=== PATIENT | male | born 1960 | race Caucasian/White ===

== ENCOUNTER → 2016-06-04 | Outpatient (CLI) | payer OTHER ==
[~2016-06-04] VITALS: Ht 188 cm; Wt 115.7 kg
[~2016-06-04] MED LIST: CURCPOW XX; ECOT81TA5 PO; GLUC500T53 PO; HYDR25TAB PO; LIDOCAINE 2% INJ 100 MG/5 ML SDV (FOR ANES.) As Ordered ONE; LISI10TA4 PO; NS 1,000 ML IV SCH; PROPOFOL 200 MG/20 ML VIAL As Ordered ONE
--- NOTE | 2016-06-04 09:27 | ROOR ---
Patient Name: Mike Wray Procedure Date: 06/04/2016 9:03 AM Date of : 1960 Age: 56 Room: [facility] Gender: Male Note Status: Finalized Procedure: Colonoscopy Indications: High risk colon cancer surveillance: Personal history of colonic polyps, Last colonoscopy: March 2011 Providers: Pio CANO MD Referring MD: Adam Smallwood MD Requesting Provider: Medicines: Monitored Anesthesia Care Complications: No immediate complications. Procedure: Pre-Anesthesia Assessment: - The heart rate, respiratory rate, oxygen saturations, blood pressure, adequacy of pulmonary ventilation, and response to care were monitored throughout the procedure. The Colonoscope was introduced through the anus and advanced to the cecum, identified by appendiceal orifice and ileocecal valve. The colonoscopy was performed without difficulty. The patient tolerated the procedure well. The quality of the bowel preparation was good. Findings: The perianal and digital rectal examinations were normal. (Exam: Complete, Prep: Good or Excellent.) Small Internal Hemorrhoids. The entire examined colon appeared normal on direct and retroflexion views. Impression: - Small Internal Hemorrhoids. - The entire colon is normal on direct and retroflexion views. - No specimens collected. Recommendation: - Repeat colonoscopy in 5 years for surveillance based on personal history of previous adenomatous polyps. Pio Cano MD Pio CANO MD 06/04/2016 9:27:01 AM This report has been signed electronically. Number of Addenda: 0 Note Initiated On: 06/04/2016 9:03 AM Estimated Blood Loss: Estimated blood loss: none.
[2016-06-04 09:45] VITALS: BP 124/80
== END ==
LOC: M OPP 07:26
PROVIDERS: ATTEND Internal Medicine Gastroenterology
DX: Z12.11 Encounter for screening for malignant neoplasm of colon (principal); Z86.010 Personal history of colon polyps; K64.8 Other hemorrhoids; I10 Essential (primary) hypertension; Z79.82 Long term (current) use of aspirin; Z79.899 Other long term (current) drug therapy

== ENCOUNTER → 2016-11-19 | Outpatient (REF) | payer OTHER ==
[~2016-11-19] MED LIST changes: -LIDOCAINE 2% INJ 100 MG/5 ML SDV (FOR ANES.) As Ordered ONE; -NS 1,000 ML IV SCH; -PROPOFOL 200 MG/20 ML VIAL As Ordered ONE
[2016-11-19 13:36] LABS: ALBUMIN 3.9 GM/DL (3.2-5.2); ALKALINE PHOSPHATASE 64 U/L (45-117); ALT/SGPT 29 U/L (12-78); ANION GAP 8 MEQ/L (8-16); AST/SGOT 20 U/L (15-37); BILIRUBIN,TOTAL 0.9 MG/DL (0.2-1.0); BLOOD UREA NITROGEN 20 MG/DL (7-18); CALCIUM LEVEL 8.6 MG/DL (8.5-10.1); CARBON DIOXIDE LEVEL 28 MEQ/L (21-32); CHLORIDE LEVEL 105 MEQ/L (98-107); CHOLESTEROL LEVEL 162 MG/DL (<200); GLOMERULAR FILTRATION RATE > 60.0 (>56); GLUCOSE, FASTING 83 MG/DL (70-105); POTASSIUM SERUM 3.5 MEQ/L (3.5-5.1); SODIUM LEVEL 141 MEQ/L (136-145); TOTAL PROTEIN 6.9 GM/DL (6.4-8.2); TRIGLYCERIDES LEVEL 52 MG/DL (<150)
== END ==
LOC: M SFHCPLAZ 09:09
PROVIDERS: ATTEND Family Medicine
DX: E78.00 Pure hypercholesterolemia, unspecified (principal); R73.09 Other abnormal glucose; R97.20 Elevated prostate specific antigen [PSA]

== ENCOUNTER → 2017-01-25 | Outpatient (CLI) | payer OTHER ==
--- NOTE | 2017-01-25 09:58 | REP ---
Clinical: Pain with recent trauma. Technique: AP and lateral views of the left humerus. Findings: Moderate arthritic changes at the shoulder and elbow with findings to suggest possible old trauma involving the distal humeral metaphysis. No acute humeral fracture identified. Lateral view demonstrates soft tissue swelling at the level of the elbow and correlation is recommended. Impression: Degenerative and possible old traumatic changes. No obvious acute fracture dislocation. Posterior elbow swelling. Signed by Easton Carrizales MD 01/25/2017 09:50 A
--- NOTE | 2017-01-25 10:00 | REP ---
Clinical: Pain with recent trauma. Technique: AP, lateral, bilateral oblique views of the left elbow. Findings: Age-related degenerative changes are appreciated along with periosteal reaction along the radial aspect of the distal humeral metaphysis suggesting old injury. Small corticated/calcified densities in the posterior soft tissues along with cortical irregularities suggest calcific tendinopathy along with mild age-related degenerative changes. No obvious acute fracture or dislocation identified. Lateral view demonstrates normal position to the anterior and posterior fat pad without effusion. Impression: Moderate degenerative changes. No obvious acute fracture dislocation. Signed by Easton Carrizales MD 01/25/2017 09:52 A
== END ==
LOC: M LRY 09:27
PROVIDERS: ATTEND Nurse Practitioner Family
DX: M25.522 Pain in left elbow (principal)

== ENCOUNTER → 2017-11-04 | Outpatient (REF) | payer OTHER ==
[2017-11-04 21:26] LABS: ALBUMIN 4.1 GM/DL (3.2-5.2); ALKALINE PHOSPHATASE 71 U/L (45-117); ALT/SGPT 35 U/L (12-78); ANION GAP 7 MEQ/L (8-16); AST/SGOT 25 U/L (7-37); BILIRUBIN,TOTAL 0.7 MG/DL (0.2-1.0); BLOOD UREA NITROGEN 21 MG/DL (7-18); CARBON DIOXIDE LEVEL 31 MEQ/L (21-32); CHLORIDE LEVEL 101 MEQ/L (98-107); CREATININE FOR GFR 0.91 MG/DL (0.70-1.30); GLOMERULAR FILTRATION RATE > 60.0 (>56); SODIUM LEVEL 139 MEQ/L (136-145); TOTAL PROTEIN 7.4 GM/DL (6.4-8.2); TRIGLYCERIDES LEVEL 59 MG/DL (<150)
[2017-11-04 21:43] LABS: CHOLESTEROL LEVEL 183 MG/DL (<200); CHOLESTEROL RISK RATIO 4.066 (<5); HDL CHOLESTEROL 45 MG/DL (>40); LDL CHOLESTEROL 126.2 MG/DL (<100); NON-HDL-C 138 MG/DL
[2017-11-04 21:44] LABS: ALBUMIN/GLOBULIN RATIO 1.24 (1.00-1.93); PROSTATIC SPECIFIC AG MONITOR 1.98 NG/ML (< 4.0)
[2017-11-05 00:05] LABS: GLUCOSE, FASTING 89 MG/DL (70-100)
== END ==
LOC: M SFHCPLAZ 08:42
DX: E78.00 Pure hypercholesterolemia, unspecified (principal); R97.20 Elevated prostate specific antigen [PSA]

== ENCOUNTER → 2019-01-28 | Outpatient (CLI) | payer OTHER ==
[2019-01-28 11:01] LABS: HEMATOCRIT 40.1 % (42.0-52.0); HEMOGLOBIN 13.8 g/dl (13.5-17.5); MEAN CORPUSCULAR HEMOGLOBIN 31.5 pg (27.0-33.0); MEAN CORPUSCULAR HGB CONC 34.4 g/dl (32.0-36.5); MEAN CORPUSCULAR VOLUME 91.6 fl (80.0-96.0); PLATELET COUNT, AUTOMATED 205 10^3/uL (150-450); RED BLOOD COUNT 4.38 10^6/uL (4.30-6.10); WHITE BLOOD COUNT 5.5 10^3/uL (4.0-10.0)
[2019-01-28 11:27] LABS: ALT/SGPT 36 U/L (12-78); BILIRUBIN,TOTAL 0.6 MG/DL (0.2-1.0); BLOOD UREA NITROGEN 22 MG/DL (7-18); CALCIUM LEVEL 8.8 MG/DL (8.5-10.1); CARBON DIOXIDE LEVEL 30 MEQ/L (21-32); CHLORIDE LEVEL 106 MEQ/L (98-107); CHOLESTEROL LEVEL 200 MG/DL (<200); CREATININE FOR GFR 0.94 MG/DL (0.70-1.30); GLOMERULAR FILTRATION RATE > 60.0 (>56); GLUCOSE, FASTING 87 MG/DL (70-100); HDL CHOLESTEROL 50 MG/DL (>40); LDL CHOLESTEROL 137 MG/DL (<100); NON-HDL-C 150 MG/DL; POTASSIUM SERUM 3.8 MEQ/L (3.5-5.1); PROSTATIC SPECIFIC AG MONITOR 1.87 NG/ML (< 4.00); SODIUM LEVEL 141 MEQ/L (136-145); TOTAL PROTEIN 7.4 GM/DL (6.4-8.2); TRIGLYCERIDES LEVEL 64 MG/DL (<150)
[2019-01-28 11:28] LABS: HEMOGLOBIN A1c 5.8 %
== END ==
LOC: M LAB 09:54
PROVIDERS: ATTEND Family Medicine
DX: I10 Essential (primary) hypertension (principal)

== ENCOUNTER → 2019-03-07 | Outpatient (CLI) | payer OTHER ==
--- NOTE | 2019-03-08 06:59 | REP ---
MRI LEFT SHOULDER: TECHNIQUE: Axial T2 fat sat, gradient echo, sagittal oblique T2 fat sat, coronal oblique T1, T2 fat sat. There is complete tear of the supraspinatus tendon with retraction of the musculotendinous junction medially approximately 3 cm. There is probably a partial tear of the subscapularis as well as the infraspinatus tendons. There are moderate hypertrophic degenerative changes of the acromioclavicular joint with mild fluid in the joint and subchondral marrow edema on both sides of the joint. There is a os acromiale present with edema along the apophysis. Biceps tendon demonstrates mild ill-defined high signal with mild surrounding fluid possibly indicating mild tenosynovitis. There is no Hill-Sachs deformity. No abnormal signal is seen in the deltoid muscle. There is a tear at the base of the biceps labral complex extending into the superior labrum. There may be some mild fraying of the anterior and posterior labrum. No edema is seen in the proximal humerus. There is mild fluid scattered in the glenohumeral joint as well as in the subacromial subdeltoid bursae. IMPRESSION: Complete tear supraspinatus tendon with a retraction of the musculotendinous junction medially approximately 3 cm. I suspect partial tears of the subscapularis and infraspinatus tendons. Moderate hypertrophic degenerative changes of the acromioclavicular joint with an os acromiale. Suspect mild biceps tendosynovitis. There is a tear at the base of the biceps labral complex and adjacent superior labrum. There may be some mild fraying of the anterior and posterior labrum. Mild glenohumeral joint fluid and well as mild fluid in the subacromial subdeltoid bursae. Electronically Signed by Bryson Naidu MD 03/08/2019 09:38 A
== END ==
LOC: M RAD 10:35
PROVIDERS: ATTEND Orthopaedic Surgery Sports Medicine
DX: M75.42 Impingement syndrome of left shoulder (principal)

== ENCOUNTER → 2019-04-22 | Outpatient (CLI) | payer OTHER ==
--- NOTE | 2019-04-22 11:09 | REP ---
LEFT HIP, TWO VIEWS: Two views of the left hip are performed. There is no acute fracture or dislocation. There is mild joint space narrowing, subchondral sclerosis and spurring. There is moderate sclerosis along the pubic symphysis bilaterally. There is mild sclerosis at the sacroiliac joints. IMPRESSION: Degenerative changes as above. Electronically Signed by Bryson Naidu MD 04/22/2019 03:13 P
--- NOTE | 2019-04-22 11:11 | REP ---
LEFT KNEE SERIES, FIVE VIEWS: Five views of the left knee performed. There is no acute fracture or dislocation. There is moderate narrowing, subchondral sclerosis and spurring of the lateral patellofemoral joint. There is an adjacent 1.2 cm ossific body at the lateral margin of that joint. There is mild superior and inferior patellar spurring. There is moderate spurring of the anterior femoral condyles. There is mild to moderate narrowing of the medial joint space with mild spurring at the lateral femoral condyle and tibial plateau. I do not see significant joint effusion. IMPRESSION: Moderate degenerative changes. Electronically Signed by Bryson Naidu MD 04/22/2019 03:13 P
== END ==
LOC: M ADAMS 09:02
PROVIDERS: ATTEND Family Medicine
DX: M25.552 Pain in left hip (principal); M25.562 Pain in left knee

== ENCOUNTER → 2019-04-25 | Outpatient (CLI) | payer OTHER ==
--- NOTE | 2019-04-26 08:44 | REP ---
MRI RIGHT SHOULDER: TECHNIQUE: Axial T2 fat sat, gradient echo, sagittal oblique T2 fat sat, coronal oblique T1, T2 fat sat. There is a complete full-thickness tear of the supraspinatus tendon with a gap in the tendon approximately 2.6 cm in maximum length. There appears to be a partial tear of the subscapularis tendon. There is an os acromiale present. There are mild to moderate hypertrophic degenerative changes of the acromioclavicular joint. Acromion is type 2. Biceps tendon is within the bicipital groove with mild surrounding fluid. There is no Hill-Sachs deformity. No abnormal signal seen in the deltoid muscle. There is no definite labral tear. No paralabral cyst is seen. Mild to moderate diffuse fluid is seen throughout the joint extending into the subacromial/subdeltoid bursae. IMPRESSION: Complete full-thickness tear supraspinatus tendon with a gap in the tendon 2.6 cm in maximum length. Partial tear subscapularis tendon. Os acromiale. Mild to moderate hypertrophic degenerative changes of the acromioclavicular joint. No definite labral tear. The labrum would be better evaluated with an MR arthrogram. Mild to moderate chondromalacia at the glenohumeral joint. Mild subchondral marrow edema and cystic change in the inferior bony glenoid as well as in the superolateral humeral head. Mild to moderate diffuse fluid throughout the joint extending into the subacromial/subdeltoid bursae. Electronically Signed by Bryosn Naidu MD 04/26/2019 06:22 P
== END ==
LOC: M RAD 10:44
PROVIDERS: ATTEND Orthopaedic Surgery Sports Medicine
DX: M25.511 Pain in right shoulder (principal)

== ENCOUNTER → 2020-01-09 | Outpatient (CLI) | payer OTHER | LOC: M LABSMTC 08:39 | PROVIDERS: ATTEND Orthopaedic Surgery Sports Medicine | DX: Z01.812 Encounter for preprocedural laboratory examination (principal); Z20.828 Contact with and (suspected) exposure to other viral communicable diseases ==

== ENCOUNTER → 2020-01-28 | Outpatient (REF) | payer OTHER ==
[2020-01-28 17:08] LABS: ALT/SGPT 58 U/L (12-78); BILIRUBIN,TOTAL 0.5 MG/DL (0.2-1.0); BLOOD UREA NITROGEN 21 MG/DL (7-18); CALCIUM LEVEL 9.7 MG/DL (8.5-10.1); CARBON DIOXIDE LEVEL 31 MEQ/L (21-32); CHLORIDE LEVEL 104 MEQ/L (98-107); CHOLESTEROL LEVEL 217 MG/DL (<200); CHOLESTEROL RISK RATIO 5.166 (<5); CREATININE FOR GFR 0.99 MG/DL (0.70-1.30); GLOMERULAR FILTRATION RATE > 60.0 (>56); GLUCOSE, FASTING 111 MG/DL (70-100); HDL CHOLESTEROL 42 MG/DL (>40); LDL CHOLESTEROL 144 MG/DL (<100); NON-HDL-C 175 MG/DL; POTASSIUM SERUM 3.9 MEQ/L (3.5-5.1); PROSTATIC SPECIFIC AG MONITOR 2.25 NG/ML (< 4.00); SODIUM LEVEL 139 MEQ/L (136-145); TOTAL PROTEIN 7.1 GM/DL (6.4-8.2); TRIGLYCERIDES LEVEL 157 MG/DL (<150)
== END ==
LOC: M PLALAB 09:08
PROVIDERS: ATTEND Family Medicine
DX: I10 Essential (primary) hypertension (principal); E78.5 Hyperlipidemia, unspecified; R97.20 Elevated prostate specific antigen [PSA]

== ENCOUNTER → 2020-03-25 | Outpatient (CLI) | payer OTHER ==
[~2020-03-25] MED LIST changes: +KP F1200 PO
== END ==
LOC: M LABSMTC 10:27
PROVIDERS: ATTEND Anesthesiology
DX: Z01.812 Encounter for preprocedural laboratory examination (principal); Z20.822 Contact with and (suspected) exposure to COVID-19

== ENCOUNTER 2020-03-30 07:53 | Day surgery (SDC) | payer OTHER ==
[~2020-03-30] VITALS: Ht 185.4 cm; Wt 130.4 kg
[~2020-03-30 07:53] MED LIST changes: +ceFAZolin SOD 2 GM in IV 1 EA IV ONE
--- OUTSIDE RECORDS SUMMARY | 2020-03-30 07:59 | CCD ---
Author Author [facility] Organization [facility] Address Unknown Phone Unavailable Care Team Providers Care Food Safety Technician Name Role Phone Adam Smallwood Unavailable PROBLEMS Type Condition ICD9-CM Code [id number] Code Onset Dates Condition S tatus SNOMED Code Notes Problem Other psoriasis L40.8 Active 0877217 Problem Psoriasis L40.9 Active 2140625 stable plaque disease affecting < 10% BSA. He isn't interested in any other therapy at this time. 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 Active 0626612616098543 Problem History of adenomatous polyp of colon Z86.010 Ac tive 925306283 Problem Other chronic pain G89.29 Active 37863294 Problem Essential (primary) hypertension I10 Active 49567354 Problem Prediabetes R73.03 Active 532674065 Problem Prediabetes R73.09 Active 269001922 Problem Dyslipidemia E78.5 Active 349817000 Problem Primary osteoarthritis, left shoulder M19.012 Active [id number] ALLERGIES No Known Allergies ENCOUNTERS from 1960 to 2020-02-10 Encounter Location Date Provider Diagnosis [facility] [address] [place] [address] 16 Jan, 2020 Jake Smallwood Essential (primary) hypertension I10 IMMUNIZATIONS Vaccine Route Administration Date Status Influenza (18 yrs & older) Flublok IM Intramuscular Feb 04, 2019 Administered Zoster 50mcg/0.5mL (Shingrix) Unknown May 15, 2017 Ad ministered Influenza (6mo & up) Fluzone IM Intramuscular Nov 23, 2015 Ad ministered Influenza (6mo & up) Fluzone IM Intramuscular Nov 10, 2013 Ad ministered SOCIAL HISTORY Tobacco Use: Social History Observation Description Date Details (start date - stop date) Never Smoker Sex Assigned At : Social History Observation Description Sex Assigned At Unknown BMI Care Goal Follow-Up Question Answer Notes Above Normal BMI Follow-Up Giving encouragement to exercise Tobacco Use: Question Answer Notes Are you a: never smoker REASON FOR REFERRAL No Information VITAL SIGNS No information MEDICATIONS Medication SIG (Take, Route, Frequency, Duration) Notes Start Da te End Date Status Glucosamine 500 mg 1 tablet Orally daily for 30 day(s) Active Protopic 0.1 % 1 application to affected ar ea Externally twice a day to inguinal folds and face for 30 days Dec, Activ e Lac-Hydrin 12 % 1 application to affected ar ea Externally Twice a day to dry skin for 1 month Dec, Active May Have - cbd OIL Not-Taking Curcumin 95 500 MG Orally Active 10% LCD in Aquaphor _ as directed topically twice daily to psoriasis plaques on body for 1 month Feb, Unknown Lisinopril 10 MG TAKE ONE TABLET BY MOUTH ONCE A DAY for 90 Active Hydrochlorothiazide 25 25 mg 1 tab(s) orally daily for 90 days Apr, Active Betamethasone Dipropionate 0.05 % 1 application to aff ected area Externally Once a day for 30 Days Active Taclonex 0.005-0.064 % APPLY 1 DROP TO AFFECTED AREA ON SCAL P ONCE A DAY for 30 Active Cordran 4 MCG/SQCM 1 application to affected ar ea Externally Once a day to lesions on legs for 1 month Apr, Unkn own Ibuprofen 800 MG 1 tablet with food or milk a s needed Orally Three times a day for 7 days Jan, Active Temovate 0.05 % 1 application to arms and le gs area Externally twice a day for a week then stop for a week, as needed Unknown Calcipotriene-Betameth Diprop 0.005-0.064 % 1 applicat ion to affected area Externally Once a day to areas on arms, legs, back for 30 day(s) Dec, Active Hydrochlorothiazide 25 MG TAKE ONE TABLET BY MOUTH DAILY for 90 Active Aspirin 81 MG 1 tab(s) Orally daily Active CPAP Machine ` 14cm water pressure ` every night/Pulmonary Active PROCEDURES No Information RESULTS No Results REASON FOR VISIT hydrochlorothiazide 25mg MEDICAL (GENERAL) HISTORY Type Description Date Medical History HTN Medical History migraines Medical History Eczema Medical History Hypercholesterolemia---10 yr ASCVD risk 12.5% (02/13)--declines statin tx Medical History OBED on CPAP Medical History Psoriasis Medical History Neck Pain Medical History Obesity Medical History Broken left arm (14 years old) Medical History chronic back pain Medical History adenomatous colon polyp 04/08 Medical History PreDM 11/10 Medical History HZ right hand/arm 04/13 Medical History left shoulder: multiple rota tor cuff tears, labral tear MRI 03/16 [facility] Surgical History lumpectomy removed from right thumb as c hild Surgical History colonoscopy--adenomatous polyp 04/08 Goals Section No Information Health Concerns No Information MEDICAL EQUIPMENT No Information MENTAL STATUS No Information FUNCTIONAL STATUS No Information ASSESSMENTS Encounter Date Diagnosis Assessment Notes Treatment Notes Treatm ent Clinical Notes Jan, Essential (primary) hypertension (ICD-10 - I10) PLAN OF TREATMENT Medication Medication Name Sig Start Date Stop Date Hydrochlorothiazide 25 25 mg 1 tab(s) orally daily for 90 days 0 8 Apr, 2012 Hydrochlorothiazide 25 MG TAKE ONE TABLET BY MOUTH DAILY for 90 Insurance Providers Payer Name Payer Address Payer Phone Insured Name Patient Relati onship to Insured Coverage Start Date Coverage End Date [facility] [id number] [facility] [id number] [phone] SACHIN ALVES [id number]
--- OUTSIDE RECORDS SUMMARY | 2020-03-30 07:59 | CCD | Continuity of Care Document ---
Author Author Mike KAISER MD Organization Unknown Address [address] [place] [address], [address] [place] [address] Phone [phone] Care Team Providers Care Costuming Supervisor Name Role Phone Adam Smallwood M.D. AUTM [phone] [facility] Radiology - Imaging AUTM Problems Active Problems Provider Date Essential hypertension Fiona Moreno, A.N.P. Onset: 11/2012 Obstructive sleep apnea syndrome Fiona Moreno, A.N.P. Onset: 02/27/2010 Social History Type Date Description Comments Sex Unknown ETOH Use Rarely consumes alcohol Tobacco Use Start: Unknown Patient has never smoked Smoking Status Reviewed: 03/31/19 Patient has never smoked Allergies, Adverse Reactions, Alerts Description No Known Drug Allergies Medications Active Medications SIG Qnty Indications Ordering Provide r Date Oxycodone-Acetaminophen 5-325mg Ta blets 1- 2 tabs by mouth every 4 to 6 hours as needed / post surgical pain 20tabs Lakhwinder Kaiser MD 01/14/2020 Lisinopril 10mg Tablets 1 tab by mouth every day Unknown Hydrochlorothiazide 25mg Tablets 1 tab by mouth every day Unknown Aspir-[address] 1 tab by mouth every day Unknown CPAP 14CM [facility] Unknown Glucosamine-Chondroitin by mouth every day Unkn own Turmeric Curcumin Capsules by mouth twice a day Unknown Tacrolimus 0.1% Ointment Unknown Calcipotriene/Betamethasone Dipropionate 0.005-0.064% Ointment Unknown 0 History Medications Percocet 5-325mg Tablets 1 by mouth every 4 hours For prn Post Op Pain. (Please DO Not Fill Until 01/14/2020) 12tabs Lakhwinder Kaiser MD 12/24/2019 - 01/14/2020 Immunizations CPT Code Status Date Vaccine Lot # [id number] Given 11/23/2015 Influenza Virus Split 3 Yrs And Above For Intramuscular Use 61288 Given 12/28/2014 Influenza Virus Split 3 Yrs And Above For Intramuscular Use 38474 Given 03/03/2013 Influenza Virus Split 3 Yrs And Above For Intramuscular Use Q2036 Given Unknown Influenza Vaccine 3 Years Of Age Or Older (Flulaval) Vital Signs Date Vital Result Comment 12/21/2019 9:02am Body Temperature 97.7 F 03/31/2019 10:33am BP Systolic 124 mmHg BP Diastolic 78 mmHg Heart Rate 62 /min O2 % BldC Oximetry 95 % Height 74 inches 6'2" Weight 263.00 lb BMI (Body Mass Index) 33.8 kg/m2 [place] Body Weight 190 lb Weight 119.297 kg BSA (Body Surface Area) 2.44 m2 Results Test Acquired Date Facility Test Result H/L Range Note Laboratory test finding 01/09/2020 [facility] Lab [address] [place] [address] [phone] Coronavirus 2019 Nasopharygeal This nucleic aci <SEE N OTE> 1 1 This nucleic acid amplificat ion test was developed and its performance characteristics determined by [employer] [facility]. Nucleic acid amplification tests include PCR and TMA. This test has not been FDA cleared or approved. This test has been authorized by FDA under an Emergency Use Authorization (EUA). This test is only authorized for the duration of time the declaration that circumstances exist justifying the authorization of the emergency use of in vitro diagnostic tests for detection of SARS-CoV-2 virus and/or diagnosis of COVID-19 infection under section 564(b)(1) of the Act, 21 U.S.C. 360bbb-3 (b) (1), unless the authorization is terminated or revoked sooner. When diagnostic testing is negative, the possibility of a false negative result should be considered in the context of a patient's recent exposures and the presence of clinical signs and symptoms consistent with COVID-19. An individual without symptoms of COVID-19 and who is not shedding SARS-CoV-2 virus would expect to have a negative (not detected) result in this assay. Performed at: [facility] [address] [facility], [place], [place] [id number] Sales Engagement Executive: Serina Lord PhD, Phone: [phone] Not Detected Procedures Date Code Description Status 11/09/201965437 Inject/Drain Arthrocentesis Diane r Joint/Bursa/Ganglion Cyst Completed Medical Devices Description No Information Available Encounters Type Date Location Provider Dx Diagnosis Office Visit 01/18/2020 8:40a [facility] Lakhwinder Kaiser MD S83.242A Oth tear of medial meniscus, current inj ury, left knee, init M17.12 Unilateral primary osteoarth ritis, left knee Z47.89 Encounter for other orthoped ic aftercare Office Visit 12/21/2019 9:10a [facility] Lakhwinder Kaiser MD M75.121 Complete rotatr-cuff tear/ruptr of r shoulder, not trauma M19.011 Primary osteoarthritis, righ t shoulder G56.03 Carpal tunnel syndrome, bila teral upper limbs M17.12 Unilateral primary osteoarth ritis, left knee Office Visit 11/09/2019 9:20a [facility] Lakhwinder Kaiser MD M75.121 Complete rotatr-cuff tear/ruptr of r shoulder, not trauma M19.011 Primary osteoarthritis, righ t shoulder G56.03 Carpal tunnel syndrome, bila teral upper limbs M17.12 Unilateral primary osteoarth ritis, left knee Assessments Date Code Description Provider 01/18/2020 S83.242A Other tear of medial meniscus, current injury, left knee, initial encounter Lakhwinder Kaiser MD 01/18/2020 M17.12 Unilateral primary osteoarthriti s, left knee Lakhwinder Kaiser MD 01/18/2020 Z47.89 Encounter for other orthopedic a ftercare Lakhwinder Kaiser MD 12/21/2019 M75.121 Complete rotator cuf f tear or rupture of right shoulder, not specified as traumatic Lakhwinder Kaiser MD 12/21/2019 M19.011 Primary osteoarthritis, right sh oulder Lakhwinder Kaiser MD 12/21/2019 G56.03 Carpal tunnel syndrome, bilatera l upper limbs Lakhwinder Kaiser MD 12/21/2019 M17.12 Unilateral primary osteoarthriti s, left knee Lakhwinder Kaiser MD 11/09/2019 M75.121 Complete rotator cuf f tear or rupture of right shoulder, not specified as traumatic Lakhwinder Kaiser MD 11/09/2019 M19.011 Primary osteoarthritis, right sh oulder Lakhwinder Kaiser MD 11/09/2019 G56.03 Carpal tunnel syndrome, bilatera l upper limbs Lakhwinder Kaiser MD 11/09/2019 M17.12 Unilateral primary osteoarthriti s, left knee Lakhwinder Kaiser MD Plan of Treatment Future Appointment(s):* 01/28/2020 9:10 am - Lakhwinder Kaiser MD at [facility] * 04/19/2020 10:15 am - Rocio Neves, N.P. at [facility] 01/18/2020 - Lakhwinder Kaiser MD* S83.242A Other tear of medial meniscus, current injury, left knee, initial encounter* Follow up:* keep scheduled appt with [facility] * M17.12 Unilateral primary osteoarthritis, left knee * Z47.89 Encounter for other orthopedic aftercare Functional Status Description No Information Available Mental Status Description No Information Available Referrals Refer to Dr Reason for Referral Status Appt Date Lakhwinder Kaiser MD SURGERY PER [place] AT [facility] N O AUTH REQUIRED FOR CTR([id number]) AND COVERED AT 100% TO SURGERY NT CALL REF #[id number] Created [address] [facility], [address] [place] [address] [phone]
--- OUTSIDE RECORDS SUMMARY | 2020-03-30 07:59 | CCD | Continuity of Care Document ---
Author Author Mike KAISER MD Organization Unknown Address [address] [place] [address] , [facility] [address] [place] [address] Phone [phone] Care Team Providers Care Training Program Manager Name Role Phone Adam Smallwood M.D. AUTM [phone] [facility] Radiology - Imaging AUTM Problems Active [...] CPT Code Status Date Vaccine Lot # 09853 Given 11/23/2015 Influenza Virus Split 3 Yrs And Above For Intramuscular Use 55369 Given 12/28/2014 Influenza Virus Split 3 Yrs And Above For Intramuscular Use 30735 Given 03/03/2013 Influenza Virus Split 3 Yrs And Above For Intramuscular Use Q2036 Given Unknown Influenza Vaccine 3 Years Of Age Or Older (Flulaval) Vital Signs Date Vital Result Comment 03/08/2020 9:49am Body Temperature 98.0 F Height 73 inches 6'1" Weight 288.00 lb BMI (Body Mass Index) 38.0 kg/m2 [place] Body Weight 184 lb Weight 130.637 kg BSA (Body Surface Area) 2.51 m2 12/21/2019 9:02am Body Temperature 97.7 F Results Test Acquired Date Facility Test Result H/L Range Note Laboratory test finding 01/09/2020 [facility] Main Lab [address] [place] [address] [phone] Coronavirus 2019 Nasopharygeal This nucleic aci <SEE N OTE> 1 1 This nucleic acid amplificat ion test was developed and its performance characteristics determined by [employer]. Nucleic acid amplification tests include PCR and [...] detected) result in this assay. Performed at: [email or web address] [address] [facility], [place], [place] [id number] [employer] Plate Making: Serina Lord PhD, Phone: [phone] Not Detected Procedures Date Code Description Status 01/14/2020 18963 Neuroplasty/Transposition, Media n Nerve AT Carpal Tunnel Completed 11/09/201987620 Inject/Drain Arthrocentesis Diane r Joint/Bursa/Ganglion Cyst Completed Medical Devices Description No Information Available Encounters Type Date Location Provider Dx Diagnosis Office Visit 03/08/2020 10:00a [facility] Lakhwinder Kaiser MD G56.01 Carpal tunnel syndrome, right upper limb Office Visit 01/28/2020 9:10a [facility] Lakhwinder Kaiser MD Z47.89 Encounter for other orthopedic aftercare M17.12 Unilateral primary osteoarth ritis, left knee M71.22 Synovial cyst of popliteal s pace [Lombardo], left knee G56.01 Carpal tunnel syndrome, righ t upper limb Office Visit 01/18/2020 8:40a [facility] Lakhwinder Kaiser MD M23.332 Oth meniscus derangements, other medial meniscus, left knee M17.12 Unilateral primary osteoarth ritis, left knee M71.22 Synovial cyst of popliteal s pace [Lombardo], left knee Z47.89 Encounter for other orthoped ic aftercare Office Visit 12/21/2019 9:10a [facility] Lakhwinder Kaiser MD M75.121 Complete rotatr-cuff tear/ruptr of r shoulder, not trauma M19.011 Primary osteoarthritis, righ t shoulder G56.03 Carpal tunnel syndrome, bila teral upper limbs M17.12 Unilateral primary osteoarth ritis, left knee Office Visit 11/09/2019 9:20a [facility] Lakhwinder Kaiser MD M75.121 Complete rotatr-cuff tear/ruptr of r shoulder, not trauma M19.011 Primary osteoarthritis, righ t shoulder G56.03 Carpal tunnel syndrome, bila teral upper limbs M17.12 Unilateral primary osteoarth ritis, left knee Assessments Date Code Description Provider 03/08/2020 G56.01 Carpal tunnel syndrome, right up per limb Lakhwinder Kaiser MD 01/28/2020 Z47.89 Encounter for other orthopedic a ftercare Lakhwinder Mollison, MD 01/28/2020 M17.12 Unilateral primary osteoarthriti s, left knee Lakhwnider Kaiser MD 01/28/2020 M71.22 Synovial cyst of popliteal space [Lombardo], left knee Lakhwinder Kaiser MD 01/28/2020 G56.01 Carpal tunnel syndrome, right up per limb Lakhwinder Kaiser MD 01/18/2020 M23.332 Other meniscus deran gements, other medial meniscus, left knee Lakhwinder Kaiser MD 01/18/2020 M17.12 Unilateral primary osteoarthriti s, left knee Lakhwinder Kaiser MD 01/18/2020 M71.22 Synovial cyst of popliteal space [Lombardo], left knee Lakhwinder Kaiser MD 01/18/2020 Z47.89 Encounter for other orthopedic a ftasmita Kaiser MD 01/14/2020 G56.02 Carpal tunnel syndrome, left upp er limb Lakhwinder Kaiser MD 12/21/2019 M75.121 Complete rotator cuf f tear or rupture of right shoulder, not specified as traumatic Lakhwinder Kaiser MD 12/21/2019 M19.011 Primary osteoarthritis, right sh thuy Kaiser MD 12/21/2019 G56.03 Carpal tunnel syndrome, bilatera l upper limbs Lakhwinder Kaiser MD 12/21/2019 M17.12 Unilateral primary osteoarthriti s, left knee Lakhwinder Kaiser MD 11/09/2019 M75.121 Complete rotator cuf f tear or rupture of right shoulder, not specified as traumatic Lakhwinder Kaiser MD 11/09/2019 M19.011 Primary osteoarthritis, right sh thuy Kaiser MD 11/09/2019 G56.03 Carpal tunnel syndrome, bilatera l upper limbs Lakhwinder Kaiser MD 11/09/2019 M17.12 Unilateral primary osteoarthriti s, left knee Lakhwinder aKiser MD Plan of Treatment Future Appointment(s):* 04/19/2020 10:15 am - Rocio Neves, N.P. at [facility] 03/08/2020 - Lakhwinder Kaiser MD* G56.01 Carpal tunnel syndrome, right upper limb Functional Status Description No Information Available Mental Status Description No Information Available Referrals Refer to Dr Reason for Referral Status Appt Date Lakhwinder Kaiser MD SURGERY PER MELITON AT [facility] N O AUTH REQUIRED FOR CTR([id number]) AND COVERED AT 100% TO SURGERY NT CALL REF #[id number] Closed [address] [facility], [address] [place] [address] [phone]
--- OUTSIDE RECORDS SUMMARY | 2020-03-30 07:59 | CCD ---
Author Author [facility] Organization [facility] Address Unknown Phone Unavailable Care Team Providers Care Toy Assembler Name Role Phone Adam Smallwood Unavailable PROBLEMS Type Condition ICD9-CM Code VPP29-SL Code Onset Dates Condition S tatus SNOMED Code Notes Problem Other psoriasis L40.8 Active 3855088 Problem Psoriasis L40.9 Active 9247499 stable plaque disease affecting < 10% BSA. He isn't interested in any other therapy at this time. Problem Sleep apnea, unspecified G47.30 Active 7404907 6 Problem Benign prostatic hyperplasia without lower urina ry tract symptoms N40.0 Active 436509397 Problem Elevated PSA R97.20 Active 024129081 Problem Primary osteoarthritis, right shoulder M19.011 Active 0828520620655711 Problem History of adenomatous polyp of colon Z86.010 Ac tive 374780412 Problem Other chronic pain G89.29 Active 08475350 Problem Essential (primary) hypertension I10 Active 90688032 Problem Prediabetes R73.03 Active 903060475 Problem Prediabetes R73.09 Active 970448133 Problem Dyslipidemia E78.5 Active 427829683 Problem Primary osteoarthritis, left shoulder M19.012 Active 893220888120538 ALLERGIES No Known Allergies ENCOUNTERS from 1960 to 2020-03-11 Encounter Location Date Provider Diagnosis [facility] [address] [place] [address] 10 Jan, 2020 Jake Smallwood Dyslipidemia E78.5 ; Arthritis of left shoulder region M19.012 ; Essential (primary) hypertension I10 ; Prediabetes R73.03 ; Elevated PSA R97.20 and Benign prostatic hyperplasia without lower urinary tract symptoms N40.0 IMMUNIZATIONS Vaccine Route Administration Date Status Influenza [...] REASON FOR REFERRAL No Information VITAL SIGNS Weight 269 lbs Jan, Height 62 in Jan, BMI 49.20 kg/m2 Jan, Heart Rate 76 /min Jan, Respiratory Rate 18 /min Jan, Temperature 96.8 degrees Fahrenheit Jan, Oximetry 97 Jan, Blood pressure systolic 134 mm Hg Jan, Blood pressure diastolic 82 mm Hg Jan, MEDICATIONS Medication SIG (Take, Route, Frequency, Duration) [...] Not-Taking Curcumin 95 500 MG Orally Active Lisinopril 10 MG TAKE ONE TABLET BY MOUTH ONCE A DAY for 90 Active 10% LCD in Aquaphor _ as directed topically twice daily to psoriasis plaques on body for 1 month Feb, Unknown Hydrochlorothiazide 25 25 mg 1 tab(s) orally [...] Information RESULTS No Results REASON FOR VISIT 6 months MEDICAL (GENERAL) HISTORY Type Description Date Medical [...] Treatment Notes Treatm ent Clinical Notes Jan, Dyslipidemia (ICD-10 - E78.5) 10 year ASCVD risk using ASCVD Risk Mechanical Product Engineer + calculated to be:12.5% ; medical tx indicated, pt declines. Risks reviewed/understood Jan, Arthritis of left shoulder region (ICD-10 - M19. 012) Jan, Essential (primary) hypertension (ICD-10 - I10) Per JNC 8 guidelines, goal BP < 140/90 (150/90 if age >60), is meeting goal on current regimen. Advised heart-healthy diet, sodium restriction Jan, Prediabetes (ICD-10 - R73.03) FBS elevated; has preDM but not emily DM. Advised low-glycemic index diet, exercise, wt loss. Jan, Elevated PSA (ICD-10 - R97.20) Jan, Benign prostatic hyperplasia without lower urinary tract symptoms (ICD-10 - N40.0) PLAN OF TREATMENT Medication Medication Name Sig Start Date Stop Date Hydrochlorothiazide 25 25 mg 1 tab(s) orally daily for 90 days 0 8 Apr, 2012 Hydrochlorothiazide 25 MG TAKE ONE TABLET BY MOUTH DAILY for 90 Lisinopril 10 MG TAKE ONE TABLET BY MOUTH ONCE A DAY for 90 Treatment Notes Assessment Notes Clinical Notes Dyslipidemia 10 year ASCVD risk u sing ASCVD Risk Mechanical Product Engineer + calculated to be:12.5% ; medical tx indicated, pt declines. Risks reviewed/understood Essential (primary) hypertension Per JNC 8 guidelines, goal BP < 140/90 (150/90 if age >60), is meeting goal on current regimen. Advised heart-healthy diet, sodium restriction Prediabetes FBS elevated; has pr eDM but not emily DM. Advised low-glycemic index diet, exercise, wt loss. Future Test Test Name Order Date LIPID PANEL (CARDIAC RISK) [id number] Next Appt Details 6 Months Reason: Insurance Providers Payer Name Payer Address Payer Phone Insured Name Patient Relati onship to Insured Coverage Start Date Coverage End Date [facility] [place] [address] [facility] [id number] SACHIN ALVES [id number]
--- OUTSIDE RECORDS SUMMARY | 2020-03-30 07:59 | CCD | Continuity of Care Document ---
Author Author Mike KAISER MD Organization Unknown Address [address] [place] [address], [address] [place] [address] Phone [phone] Care Team Providers Care Pie Maker Machine Name Role Phone Adam Smallwood M.D. AUTM [phone] [facility] Radiology - Imaging AUTM [phone] Problems Active Problems Provider Date Essential hypertension [...] CPT Code Status Date Vaccine Lot # 83921 Given 11/23/2015 Influenza Virus Split 3 Yrs And Above For Intramuscular Use 19853 Given 12/28/2014 Influenza Virus Split 3 Yrs And Above For Intramuscular Use 84001 Given 03/03/2013 Influenza Virus Split 3 Yrs [...] lb BMI (Body Mass Index) 33.8 kg/m2 [place] Body Weight 190 lb Weight 119.297 kg BSA (Body Surface Area) 2.44 m2 Results Test Acquired Date Facility Test Result H/L Range Note Laboratory test finding 01/09/2020 [facility] Main Lab [address] [place] [address] [phone] Coronavirus 2019 Nasopharygeal This nucleic aci <SEE N OTE> 1 1 This nucleic acid amplificat ion test was developed and its performance characteristics determined by [employer]. Nucleic acid amplification tests include PCR and [...] detected) result in this assay. Performed at: [facility] [address] [facility], [place], [place] [id number] Electrical Installer: Serina Lord PhD, Phone: [phone] Not Detected Procedures Date Code Description Status 01/14/2020 28691 Neuroplasty/Transposition, Media n Nerve AT Carpal Tunnel Completed 11/09/2019 35901 Inject/Drain Arthrocentesis Diane r Joint/Bursa/Ganglion Cyst Completed Medical Devices Description No Information Available Encounters Type Date Location Provider Dx Diagnosis Office Visit 01/28/2020 9:10a [facility] Lakhwinder Kaiser MD Z47.89 Encounter for other orthopedic aftercare M17.12 Unilateral primary osteoarth ritis, left knee M71.22 Synovial cyst of popliteal s pace [Lombardo], left knee G56.01 Carpal tunnel syndrome, righ t upper limb Office Visit 01/18/2020 8:40a [facility] Lakhwinder Kaiser MD M23.332 Oth meniscus derangements, other medial meniscus, left knee M17.12 Unilateral primary osteoarth ritis, left knee M71.22 Synovial cyst of popliteal s pace [Lombardo], left knee Z47.89 Encounter for other orthoped ic aftercare Office Visit 12/21/2019 9:10a [facility] Lakhwinder Kaiser MD M75.121 Complete rotatr-cuff tear/ruptr of r shoulder, not trauma M19.011 Primary osteoarthritis, righ t shoulder G56.03 Carpal tunnel syndrome, bila teral upper limbs M17.12 Unilateral primary osteoarth ritis, left knee Office Visit 11/09/2019 9:20a [facility] Lakhwinder Kaiser MD M75.121 Complete rotatr-cuff tear/ruptr of r shoulder, not trauma M19.011 Primary osteoarthritis, righ t shoulder G56.03 Carpal tunnel syndrome, bila teral upper limbs M17.12 Unilateral primary osteoarth ritis, left knee Assessments Date Code Description Provider 01/28/2020 Z47.89 Encounter for other orthopedic a ftercare Lakhwinder Kaiser MD 01/28/2020 M17.12 Unilateral primary osteoarthriti s, left knee Lakhwinder Kaiser MD 01/28/2020 M71.22 Synovial cyst of [...] other orthopedic a ftercare Lakhwinder Kaiser MD 01/14/2020 G56.02 Carpal tunnel syndrome, [...] Kaiser MD Plan of Treatment Future Appointment(s):* 04/19/2020 10:15 am - Rocio Neves, N.P. at [facility] Pulmonary/Thoracic 01/28/2020 - Lakhwinder Kaiser MD* Z47.89 Encounter for other orthopedic aftercare * Follow up:* f/u in the end of February for right hand recheck possible surgery paperwork * M17.12 Unilateral primary osteoarthritis, left knee * M71.22 Synovial cyst of popliteal space [Lombardo], left knee * G56.01 Carpal tunnel syndrome, right upper limb Functional Status Description No Information Available Mental Status Description No Information Available Referrals Refer to Reason for Referral Status Appt Date Mollison, Lakhwinder, MD SURGERY PER MELITON AT [facility] N O AUTH REQUIRED FOR CTR(85541) AND COVERED AT 100% TO SURGERY NT CALL REF #[id number] Closed [address] [facility], [address] [place] [address] [phone]
--- OUTSIDE RECORDS SUMMARY | 2020-03-30 08:00 | CCD ---
Author Author [facility] Organization [facility] Address Unknown Phone Unavailable Care Team Providers Care Melting Supervisor Name Role Phone NADER, MICAELA SANTHOSH TEMPLATE REPRODUCTION TECHNICIAN-C Unavailable Unavailable NADER, MICAELA SANTHOSH TEMPLATE REPRODUCTION TECHNICIAN-C Unavailable Unavailable NADER, MICAELA SANTHOSH TEMPLATE REPRODUCTION TECHNICIAN-C Unavailable Unavailable NADER, MICAELA SANTHOSH TEMPLATE REPRODUCTION TECHNICIAN-C Unavailable Unavailable NADER, MICAELA SANTHOSH TEMPLATE REPRODUCTION TECHNICIAN-C Unavailable Unavailable NADER, MICAELA SANTHOSH TEMPLATE REPRODUCTION TECHNICIAN-C Unavailable Unavailable NADER, MICAELA SANTHOSH TEMPLATE REPRODUCTION TECHNICIAN-C Unavailable Unavailable NADER, MICAELA SANTHOSH TEMPLATE REPRODUCTION TECHNICIAN-C Unavailable Unavailable NADER, MICAELA SANTHOSH TEMPLATE REPRODUCTION TECHNICIAN-C Unavailable Unavailable NADER, MICAELA SANTHOSH TEMPLATE REPRODUCTION TECHNICIAN-C Unavailable Unavailable NADER, MICAELA SANTHOSH TEMPLATE REPRODUCTION TECHNICIAN-C Unavailable Unavailable NADER, MICAELA SANTHOSH TEMPLATE REPRODUCTION TECHNICIAN-C Unavailable Unavailable NADER, MICAELA SANTHOSH TEMPLATE REPRODUCTION TECHNICIAN-C Unavailable Unavailable NADER, MICAELA SANTHOSH TEMPLATE REPRODUCTION TECHNICIAN-C Unavailable Unavailable NADER, MICAELA SANTHOSH TEMPLATE REPRODUCTION TECHNICIAN-C Unavailable Unavailable NON, PHYSICIAN STAFF Unavailable Unavailable Francis Barros MD Unavailable Unavailable Francis Barros MD Unavailable Unavailable Francis Barros MD Unavailable Unavailable Francis Barros MD Unavailable Unavailable Francis Barros MD Unavailable Unavailable Francis Barros MD Unavailable Unavailable Francis Barros MD Unavailable Unavailable Francis Barros MD Unavailable Unavailable Francis Barros MD Unavailable Unavailable Francis Barros MD Unavailable Unavailable Francis Barros MD Unavailable Unavailable Mollison, Francis Keane MD Unavailable Unavailable Mollison, Francis Keane MD Unavailable Unavailable Mollison, Francis Keane MD Unavailable Unavailable Mollison, Francis Keane MD Unavailable Unavailable Mollison, Francis Keane MD Unavailable Unavailable Mollison, Francis Keane MD Unavailable Unavailable Mollison, Francis Keane MD Unavailable Unavailable Mollison, Francis Keane MD Unavailable Unavailable Mollison, Francis Keane MD Unavailable Unavailable Mollison, Francis Keane MD Unavailable Unavailable Mollison, Francis Keane MD Unavailable Unavailable Mollison, Francis Keane MD Unavailable Unavailable Mollison, Francis Keane MD Unavailable Unavailable Mollison, Francis Keane MD Unavailable Unavailable Mollison, Francis Keane MD Unavailable Unavailable Mollison, Francis Keane MD Unavailable Unavailable Mollison, Francis Keane MD Unavailable Unavailable Mollison, Francis Keane MD Unavailable Unavailable Mollison, Francis Keane MD Unavailable Unavailable Mollison, Francis Keane MD Unavailable Unavailable Mollison, Francis Keane MD Unavailable Unavailable Mollison, Francis Keane MD Unavailable Unavailable Mollison, Francis Keane MD Unavailable Unavailable Mollison, Francis Keane MD Unavailable Unavailable Mollison, Francis Keane MD Unavailable Unavailable Mollison, Francis Keane MD Unavailable Unavailable Mollison, Francis Keane MD Unavailable Unavailable Mollison, Francis Keane MD Unavailable Unavailable Mollison, Francis Keane MD Unavailable Unavailable Mollison, Francis Keane MD Unavailable Unavailable Mollison, Francis Keane MD Unavailable Unavailable Mollison, Francis Keane MD Unavailable Unavailable Mollison, Francis Keane MD Unavailable Unavailable Yonathan Alonso MD Unavailable Unavailable Yonathan Alonso MD Unavailable Unavailable VanrodrigoamYonathan MD Unavailable Unavailable Vanrodrigoam, Yonathan Cooley MD Unavailable Unavailable VanYonathan correia MD Unavailable Unavailable Yonathan Alosno MD Unavailable Unavailable Yonathan Alonso MD Unavailable Unavailable Yonathan Alonso MD Unavailable Unavailable VanYonathan correia MD Unavailable Unavailable VanrodrigoamYonathan MD Unavailable Unavailable VanYonathan correia MD Unavailable Unavailable VanYonathan correia MD Unavailable Unavailable Yonathan Alonso MD Unavailable Unavailable Yonathan Alonso MD Unavailable Unavailable Yonathan Alonso MD Unavailable Unavailable VanYonathan correia MD Unavailable Unavailable VanYonathan correia MD Unavailable Unavailable VanYonathan correia MD Unavailable Unavailable Yonathan Alonso MD Unavailable Unavailable Yonathan Alonso MD Unavailable Unavailable Yonathan Alonso MD Unavailable Unavailable VanYonathan correia MD Unavailable Unavailable VanrodrigoamYonathan MD Unavailable Unavailable VaneenhelenaamYonathan MD Unavailable Unavailable VaneenenaamYonathan MD Unavailable Unavailable Vaneenenaam, Yonathan Cooley MD Unavailable Unavailable Vaneenenaam, Yonathan Cooley MD Unavailable Unavailable Vaneenenaam, Yonathan Cooley MD Unavailable Unavailable Vaneenenaam, Yonathan Cooley MD Unavailable Unavailable Vaneenenaam, Yonathan Cooley MD Unavailable Unavailable Vaneenenaam, Yonathan Cooley MD Unavailable Unavailable Vaneenenaam, Yonathan Cooley MD Unavailable Unavailable Vaneenenaam, Yonathan Cooley MD Unavailable Unavailable Vaneenenaam, Yonathan Cooley MD Unavailable Unavailable Vaneenenaam, Yonathan Cooley MD Unavailable Unavailable Vaneenenaam, Yonathan Coolye MD Unavailable Unavailable Vaneenenaam, Yonathan Cooley MD Unavailable Unavailable Vaneenenaam, Yonathan Cooley MD Unavailable Unavailable Vaneenenaam, Yonathan Cooley MD Unavailable Unavailable Vaneenenaam, Yonathan Cooley MD Unavailable Unavailable Vaneenenaam, Yonathan Cooley MD Unavailable Unavailable Vaneenenaam, Yonathan Cooley MD Unavailable Unavailable WetterhahnAdam MD Unavailable Unavailable WetterhahnAdam MD Unavailable Unavailable WetterhahnAdam MD Unavailable Unavailable WetterhahnAdam MD Unavailable Unavailable WetterhahnAdam MD Unavailable Unavailable WetterhahnAdam MD Unavailable Unavailable WetterhahnAdam MD Unavailable Unavailable WetterhahnAdam MD Unavailable Unavailable WetterhahnAdam MD Unavailable Unavailable WetterhahnAdam MD Unavailable Unavailable WetterhahnAdam MD Unavailable Unavailable WetterhahnAdam MD Unavailable Unavailable WetterhahnAdam MD Unavailable Unavailable WetterhahnAdam MD Unavailable Unavailable WetterhahnAdam MD Unavailable Unavailable WetterhaAdam su MD Unavailable Unavailable WetterhahnAdam MD Unavailable Unavailable WetterhahnAdam MD Unavailable Unavailable WetterhahnAdam MD Unavailable Unavailable WetterhahnAdam MD Unavailable Unavailable WetterhahnAdam MD Unavailable Unavailable WetterhahnAdam MD Unavailable Unavailable WetterhahnAdam MD Unavailable Unavailable WetterhahnAdam MD Unavailable Unavailable WetterhahnAdam MD Unavailable Unavailable WetterhahnAdam MD Unavailable Unavailable WetterhahnAdam MD Unavailable Unavailable WetterhahnAdam MD Unavailable Unavailable WetterhahnAdam MD Unavailable Unavailable WetterhahnAdam MD Unavailable Unavailable WetterhahnAdam MD Unavailable Unavailable WetterhahnAdam MD Unavailable Unavailable WetterhahnAdam MD Unavailable Unavailable WetterhahnAdam MD Unavailable Unavailable WetterhahnAdam MD Unavailable Unavailable Wetterhahn, Adam KELLEY Unavailable Unavailable Wetterhahn, Adam KELLEY Unavailable Unavailable Wetterhahn, Adam KELLEY Unavailable Unavailable Wetterhahn, Adam KELLEY Unavailable Unavailable Wetterhahn, Adam KELLEY Unavailable Unavailable Wetterhahn, Adam KELLEY Unavailable Unavailable Wetterhahn, Adam KELLEY Unavailable Unavailable Wetterhahn, Adam KELLEY Unavailable Unavailable Wetterhahn, Adam KELLEY Unavailable Unavailable Wetterhahn, Adam KELLEY Unavailable Unavailable Wetterhahn, Adam KELLEY Unavailable Unavailable Wetterhahn, Adam KELLEY Unavailable Unavailable Wetterhahn, Adam KELLEY Unavailable Unavailable Wetterhahn, Adam KELLEY Unavailable Unavailable Wetterhahn, Adam KELLEY Unavailable Unavailable Wetterhahn, Adam KELLEY Unavailable Unavailable Wetterhahn, Adam KELLEY Unavailable Unavailable Wetterhahn, Adam KELLEY Unavailable Unavailable Wetterhahn, Adam KELLEY Unavailable Unavailable Wetterhahn, Adam KELLEY Unavailable Unavailable Wetterhahn, Adam KELLEY Unavailable Unavailable Wetterhahn, Adam KELLEY Unavailable Unavailable Wetterhahn, Adam KELLEY Unavailable Unavailable Wetterhahn, Adam KELLEY Unavailable Unavailable Wetterhahn, Adam KELLEY Unavailable Unavailable Wetterhahn, Adam KELLEY Unavailable Unavailable Wetterhahn, Adam KELLEY Unavailable Unavailable Wetterhahn, Adam KELLEY Unavailable Unavailable Wetterhahn, Adam KELLEY Unavailable Unavailable Wetterhahn, Adam KELLEY Unavailable Unavailable Wetterhahn, Adam KELLEY Unavailable Unavailable Wetterhahn, Adam KELLEY Unavailable Unavailable Wetterhahn, Adam KELLEY Unavailable Unavailable Wetterhahn, Adam KELLEY Unavailable Unavailable Wetterhahn, Adam KELLEY Unavailable Unavailable Wetterhahn, Adam KELLEY Unavailable Unavailable Benites, Ben Unavailable Unavailable Benites, Ben Unavailable Unavailable Benites, Ben Unavailable Unavailable Benites, Ben Unavailable Unavailable Benites, Ben Unavailable Unavailable Benites, Ben Unavailable Unavailable Benites, Ben Unavailable Unavailable Benites, Ben Unavailable Unavailable Benites, Ben Unavailable Unavailable Benites, Ben Unavailable Unavailable Benites, Ben Unavailable Unavailable Benites, Ben Unavailable Unavailable Benites, Ben Unavailable Unavailable Benites, Ben Unavailable Unavailable Benites, Ben Unavailable Unavailable Benites, Ben Unavailable Unavailable Benites, Ben Unavailable Unavailable Benites, Ben Unavailable Unavailable Benites, Ben Unavailable Unavailable Benites, Ben Unavailable Unavailable Benites, Ben Unavailable Unavailable Benites, Ben Unavailable Unavailable Benites, Ben Unavailable Unavailable Benites, Ben Unavailable Unavailable Benites, Ben Unavailable Unavailable Benites, Ben Unavailable Unavailable Benites, Ben Unavailable Unavailable Benites, Ben Unavailable Unavailable Benites, Ben Unavailable Unavailable Benites, Ben Unavailable Unavailable Benites, Ben Unavailable Unavailable Benites, Ben Unavailable Unavailable Benites, Ben Unavailable Unavailable Benites, Ben Unavailable Unavailable Benites, Ben Unavailable Unavailable Benites, Ben Unavailable Unavailable Benites, Ben Unavailable Unavailable Benites, Ben Unavailable Unavailable Benites, Ben Unavailable Unavailable Benites, Ben Unavailable Unavailable Benites, Ben Unavailable Unavailable Benites, Ben Unavailable Unavailable Benties, Ben Unavailable Unavailable Benites, Ben Unavailable Unavailable Re-disclosure Warning The records that you are about to access may contain information from federally-assisted alcohol or drug abuse programs. If such information is present, then the following federally mandated warning applies: This information has been disclosed to you from records protected by federal confidentiality rules (42 CFR part 2). The federal rules prohibit you from making any further disclosure of this information unless further disclosure is expressly permitted by the written consent of the person to whom it pertains or as otherwise permitted by 42 CFR part 2. A general authorization for the release of medical or other information is NOT sufficient for this purpose. The Federal rules restrict any use of the information to criminally investigate or prosecute any alcohol or drug abuse patient.The records that you are about to access may contain highly sensitive health information, the redisclosure of which is protected by Article 27-F of the [facility] Public Health law. If you continue you may have access to information: Regarding HIV / AIDS; Provided by facilities licensed or operated by the [facility] Office of Mental Health; or Provided by the [facility] Office for People With Developmental Disabilities. If such information is present, then the following [facility] mandated warning applies: This information has been disclosed to you from confidential records which are protected by state law. State law prohibits you from making any further disclosure of this information without the specific written consent of the person to whom it pertains, or as otherwise permitted by law. Any unauthorized further disclosure in violation of state law may result in a fine or residential sentence or both. A general authorization for the release of medical or other information is NOT sufficient authorization for further disc losure. Family History Family Member Name Family Member Gender Family Member Status Date o f Status Description Data Source(s) Unknown Unknown Problem MEDENT ([facility], ) Unknown Unknown Problem MEDENT ([facility], ) Encounters Encounter Providers Location Date Indications Data Source(s ) Office Visit Attender: Lakhwinder Dunaway/Mal/Nelson/Kerry indl 03/08/2020 09:00:00 AM EST MEDENT ([facility] [place] [address] [address] 02/10/2020 12:00:00 AM EST eCW1 ([facility]) Outpatient [address] [facility] [address] 02/04/2020 12:00:00 AM EST eCW1 ([facility]) Office Visit Attender: Lakhwinder Dunaway/[place]/Nelson/Re indl 01/28/2020 08:10:00 AM EST MEDENT ([facility] Outpatient Attender: Lakhwinder Dunaway/[place]/Nelson/Re indl 01/18/2020 07:40:00 AM EST MEDENT ([facility]) Outpatient Attender: Lakhwinder Dunaway/Mal/Nelson/Re indl 12/21/2019 09:10:00 AM EDT MEDENT ([facility] ) Outpatient Attender: Lakhwinder Dunaway/Mal/Nelson/Re indl 11/09/2019 09:20:00 AM EDT MEDENT ([facility] ) Outpatient Attender: Lakhwinder Barros MDConsultant: Adam emmanuel MD 07/13/2019 09:35:00 AM EDT - 08/04/2019 10:02:00 AM EDT [facility] Patient discharged. [facility] [address] [address] 07/13/2019 12:00:00 AM EDT eCW1 ([facility]) Outpatient Attender: Lakhwinder Barros MDConsultant: STAFF NON 05/06/2019 09:54:00 AM EDT [facility] Discharge cancelled. Disregard status an d discharged date. Outpatient Attender: Lakhwinder Dunaway/Mal/Nelson/Re indl 05/04/2019 10:40:00 AM EDT MEDENT ([facility] ) Outpatient 04/30/2019 12:06:00 PM EST [facility] Outpatient 04/28/2019 02:52:00 PM EST [facility] [address] [facility] [address] 04/23/2019 12:00:00 AM EST eCW1 ([facility]) [facility] [address] [facility] [address] 04/22/2019 12:00:00 AM EST eCW1 ([facility]) Outpatient Attender: Yonathan Alonso MD Physical Therap y 04/14/2019 08:00:00 AM EST MEDENT ([facility]) Outpatient Attender: Lakhwinder Dunaway/Mal/Nelson/Re indl 04/13/2019 08:40:00 AM EST MEDENT ([facility]) OFFICE OUTPATIENT NEW 30 MINUTES Attender: Ben Benites Physical Therapy 04/02/2019 12:00:00 PM EST MEDENT ([facility]) [facility] [address] [facility] [address] 04/01/2019 12:00:00 AM EST eCW1 ([facility]) Outpatient Attender: SANTHOSH HUYNH-Michelle Dunaway/Mal/Nelson/R eindl 03/31/2019 09:45:00 AM EST MEDENT ([facility]) Outpatient 03/22/2019 06:10:00 PM EST [facility] Outpatient Attender: Lakhwinder Dunaway/Mal/Nelson/Re indl 03/19/2019 08:10:00 AM EST MEDENT ([facility]) [facility] Rheumatology [address] [place] [address] 02/13/2019 12:00:00 AM EST eCW1 ([facility]) [facility] [address] [facility] [address] 02/10/2019 12:00:00 AM EST eCW1 ([facility]) Outpatient Attender: Lakhwinder Dunaway/Mal/Nelson/Re indl 02/09/2019 08:00:00 AM EST MED[facility] ([facility]) [facility] [address] [facility] [address] 02/04/2019 12:00:00 AM EST eCW1 ([facility]) Immunizations Vaccine Date Status Description Data Source(s) INFLUENZA VIRUS VACCINE QUADRIVALENT 2019- (6 MOS AN D UP) 12/19/2019 12:00:00 AM EDT completed [facility] influenza, recombinant, quadrIvalent,injectable, prese rvative free 02/04/2019 12:00:00 PM EST completed eCW1 ([facility]) influenza, recombinant, quadrIvalent,injectable, prese rvative free 02/04/2019 12:00:00 PM EST completed eCW1 ([facility]) influenza, recombinant, quadrIvalent,injectable, prese rvative free 02/04/2019 12:00:00 PM EST completed eCW1 ([facility]) Medications Medication Brand Name Start Date Product Form Dose Route Admi nistrative Instructions Pharmacy Instructions Status Indications Reaction Description Data Source(s) 10 mg 03/09/2020 12:00:00 AM EST tablet 90 TAKE ONE TABLET BY MOUTH EVERY DAY TAKE ONE TABLET BY MOUTH EVERY DAY SOLD: 03/12/2020 [facility] 25 mg 02/10/2020 12:00:00 AM EST tablet 90 TAKE ONE TABLET BY MOUTH EVERY DAY TAKE ONE TABLET BY MOUTH EVERY DAY SOLD: 02/10/2020 [facility] Acetaminophen 325 MG / Oxycodone Hydrochloride 5 MG Or al Tablet Oxycodone-Acetaminophen 01/14/2020 12:00:00 AM EST ORAL active MEDENT ([facility], ) 5-325 mg 01/14/2020 12:00:00 AM EST tablet 20 TAKE 1-2 TABLETS BY MOUTH EVERY 4-6 HOURS NEEDED FOR POST SURGICAL PAIN MAXIMUM DAILY DOSE = 6 TABLETS TAKE 1-2 TABLETS BY MOUTH EVERY 4-6 HOURS NEEDED FOR POST SURGICAL PAIN MAXIMUM DAILY DOSE = 6 TABLETS SOLD: 01/14/2020 [facility] Acetaminophen 325 MG / Oxycodone Hydrochloride 5 MG Or al Tablet [Percocet] Percocet 12/24/2019 12:00:00 AM EDT ORAL completed MEDENT ([facility]) . UNIT 12/19/2019 12:00:00 AM EDT Injectable 1 DIRECTED DIRECTED SOLD: 12/19/2019 [facility] 800 mg 04/13/2019 12:00:00 AM EST tablet 30 TAKE ONE TABLET BY MOUTH EVERY 8 HOURS NEEDED FOR PAIN TAKE ONE TABLET BY MOUTH EVERY 8 HOURS A S NEEDED FOR PAIN SOLD: 04/13/2019 [facility] 0.12 % 04/13/2019 12:00:00 AM EST mouthwash 473 SWISH AND SPIT 15ML BY MOUTH TWO TIMES A DAY SWISH AND SPIT 15ML BY MOUTH TWO TIMES A DAY SOLD: 0 [facility] 0.1 % 02/14/2019 12:00:00 AM EST ointment 60 APPLY 1 APPLICATION TO AFFECTED AREA TWO TIMES A DAY TO INGUINAL FOLDS & FACE EXTERNALLY APPLY 1 APPLICATION TO AFFECTED AREA TWO TIMES A DAY TO INGUINAL FOLDS & FACE EXTERNALLY SOLD: 02/16/2019 [facility] 0.005-0.064 % 02/05/2019 12:00:00 AM EST suspension 60 APPLY 1 DROP TO AFFECTED AREA ON SCALP ONCE A DAY FOR 30 DAYS APPLY 1 DROP TO AFFECTED AREA ON SCALP ONCE A DAY FOR 30 DAYS SOLD: 02/07/2019 [facility] 10 mg 02/05/2019 12:00:00 AM EST tablet 90 TAKE 1 TABLET BY MOUTH ONCE A DAY TAKE 1 TABLET BY MOUTH ONCE A DAY SOLD: 12/10/2019 [facility] 0.005-0.064 % 02/05/2019 12:00:00 AM EST ointment 100 APPLY 1 APPLICATION TO AFFECTED AREA ON ARMS, LEGS, BACK ONCE A DAY APPLY 1 APPLICATION TO AFFECTED AREA ON ARMS, LEGS, BACK ONCE A DAY SOLD: 02/07/2019 [facility] 10 mg 02/05/2019 12:00:00 AM EST tablet 90 TAKE 1 TABLET BY MOUTH ONCE A DAY TAKE 1 TABLET BY MOUTH ONCE A DAY SOLD: 06/02/2019 [facility] 10 mg 02/05/2019 12:00:00 AM EST tablet 90 TAKE 1 TABLET BY MOUTH ONCE A DAY TAKE 1 TABLET BY MOUTH ONCE A DAY SOLD: 02/07/2019 [facility] 0.005-0.064 % 02/05/2019 12:00:00 AM EST ointment 100 APPLY 1 APPLICATION TO AFFECTED AREA ON ARMS, LEGS, BACK ONCE A DAY APPLY 1 APPLICATION TO AFFECTED AREA ON ARMS, LEGS, BACK ONCE A DAY SOLD: 04/30/2019 [facility] 10 mg 02/05/2019 12:00:00 AM EST tablet 90 TAKE 1 TABLET BY MOUTH ONCE A DAY TAKE 1 TABLET BY MOUTH ONCE A DAY SOLD: 09/04/2019 [facility] 25 mg 01/27/2019 12:00:00 AM EST tablet 90 TAKE ONE TABLET BY MOUTH EVERY DAY TAKE ONE TABLET BY MOUTH EVERY DAY SOLD: 01/28/2019 [facility] 25 mg 01/27/2019 12:00:00 AM EST tablet 90 TAKE ONE TABLET BY MOUTH EVERY DAY TAKE ONE TABLET BY MOUTH EVERY DAY SOLD: 04/30/2019 [facility] 25 mg 01/27/2019 12:00:00 AM EST tablet 90 TAKE ONE TABLET BY MOUTH EVERY DAY TAKE ONE TABLET BY MOUTH EVERY DAY SOLD: 11/09/2019 [facility] 25 mg 01/27/2019 12:00:00 AM EST tablet 90 TAKE ONE TABLET BY MOUTH EVERY DAY TAKE ONE TABLET BY MOUTH EVERY DAY SOLD: 08/10/2019 [facility] Insurance Providers Payer name Policy type / Coverage type Policy ID Covered green party ID Covered green party's relationship to miranda Policy Miranda Plan Information [facility] [id number] [id number] [facility] [id number] S [id number] [facility] [id number] ANSI-Commercial [id number] ANSI-Commercial [id number] ANSI-Commercial [id number] ANSI-Commercial [id number] [employer] [id number] [place]2 [id number] [employer] [id number] Family Dependent [id number] [employer] PPO O [id number] S [id number] [employer] [id number] [place]2 [id number] [employer] (HMO) [address] Dependent [id number] Problems, Conditions, and Diagnoses Code Display Name Description Problem Type Effective Dates Data Source(s) M19.012 [id number] Primary osteoarthritis, left shoulder Problem 04/22/2019 12:00:00 AM EST eCW1 ([facility]) G89.29 [id number] Other chronic pain Problem 04/22/2019 12:00: 00 AM EST eCW1 ([facility]) M19.011 [id number] Primary osteoarthritis, right shoulde r Problem 04/22/2019 12:00:00 AM EST eCW1 ([facility]) M19.012 [id number] Primary osteoarthritis, left shoulder Problem 04/22/2019 12:00:00 AM EST eCW1 ([facility]) G89.29 [id number] Other chronic pain Problem 04/22/2019 12:00: 00 AM EST eCW1 ([facility]) M19.011 [id number] Primary osteoarthritis, right shoulde r Problem 04/22/2019 12:00:00 AM EST eCW1 ([facility]) [id number] Essential hypertension Essential hypertension Problem 04/02/2019 12:00:00 AM EST MEDENT ([facility]) [id number] Primary osteoarthritis, left shoulder Pr imary osteoarthritis, left shoulder Diagnosis 07/13/2019 09:35:00 AM [facility] [id number] Complete rotator cuff tear o r rupture of left shoulder, not specified as traumatic Complete rotator cuff tear or rupture of left shoulder, not specified as traumatic Diagnosis 07/13/2019 09:35:00 AM [facility] Surgeries/Procedures Procedure Description Date Indications Data Source(s) Neuroplasty/Transposition, Median Nerve AT Carpal Tunnel 01/14/2020 12:00:00 AM EST MEDENT ([facility]) Inject/Drain Arthrocentesis Major Joint/Bursa/Ganglion Cyst 11/09/2019 12:00:00 AM EDT MEDENT ([facility]) Inject/Drain Arthrocentesis Major Joint/Bursa/Ganglion Cyst 04/14/2019 12:00:00 AM EST MEDENT ([facility] RADEX SHOULDER COMPLETE MINIMUM 2 VIEWS 04/13/2019 12: 00:00 AM EST MEDENT ([facility]) X-Ray Shoulder Complete 04/13/2019 12:00:00 AM EST MEDENT ([facility]) Needle electromyography, each extremity, with related paraspinal areas, when performed, done with nerve conduction, amplitude and latency/velocity study; complete, five or more muscles studied, innervated by three or more nerves or four or more spinal levels (list separately in addition to the code for primary procedure). 04/02/2019 12:00:00 AM EST MEDEN T ([facility]) Nerve Conduction 9-10 Studies 04/02/2019 12:00:[address] MEDENT ([facility]) RADEX SHOULDER COMPLETE MINIMUM 2 VIEWS 02/09/2019 12: 00:00 AM EST [facility] ([facility]) RADEX WRIST 2 VIEWS 02/09/2019 12:00:00 AM EST [facility] ([facility]) X-Ray Shoulder Complete 02/09/2019 12:00:00 AM EST [facility] ([facility], ) RADEX WRIST 2 VIEWS 02/09/2019 12:00:00 AM EST [facility] ([facility]) Office Visit, Est Pt., Level 3 FC 02/04/2019 12:00:00 AM EST eCW1 ([facility]) Office Visit, Est Pt., Level 3 PC 02/04/2019 12:00:00 AM EST eCW1 ([facility]) RIV4 VACC RECOMBINANT DNA IM 02/04/2019 12:00:00 AM ES T eCW1 ([facility]) IMMUNIZATION ADMIN 02/04/2019 12:00:00 AM EST eCW1 ([facility]) Results ID Date Data Source [id number] 03/25/2020 10:00:00 AM EST [facility] Name Value Range Interpretation Code Description Data Rosalinda rce(s) Supporting Document(s) SARS coronavirus 2 RNA Not Detected [facility] [place] This lab was ordered by [facility] and reported by [facility]. ID Date Data Source [id number] 01/11/2020 12:00:00 AM EST [facility] ology Imaging Lakhwinder Barros MD Patient Name: ALVARO ALVES [facility] Date of : 1960uit Date of Exam: 01/11/2020JENNIFER Dela Cruz [id number]#: Fax: [phone] EXAM: MRI KNEE LEFT WITHOUT CONTRASTCLINICAL INFORMATION: Chronic atraumatic pain.3T multiplanar MRI imaging of the left knee was obtained using varioussequences.There are no prior left knee MRI's for comparison.There is complex Grade III signal change seen in the posterior horn of themedial meniscus. The anterior horn is within normal limits. The anteriorand posterior horns of the lateral meniscus are within normal limits. Theanterior and posterior cruciate ligaments are intact. The quadriceps andpatellar tendons are intact. There is T2 hypersignal seen deep to themedial collateral ligament which is intact. Mild T2 hypersignal is seen inthe lateral collateral ligament which is intact. The medial and lateralpatellar retinacula are intact. There is advanced thinning andirregularity of the patellar articular cartilage and cartilaginous surfaceof the trochlear groove. There is some evidence of lateral subluxation ofthe patella. There is subchondral T2 hypersignal seen in the patella andparticularly over the lateral facet. Multi-focal T2 hypersignal is seen inthe anterior lateral femoral condyle. Advanced cartilaginous thinning andirregularity is seen involving both medial and lateral compartments,p articularly the medial. There is tricompartmental marginal osteophytosis. There is a joint effusion a 4.6 x 1 x 2.7 cm sized Lombardo's cyst.IMPRESSION:1. Complex tear involving the posterior horn of the medial meniscus.2. Medial and lateral collateral ligamentous sprain.3. Advanced tricompartmental chondromalacia seen in conjunction withtricompartmental marginal osteophytosis and mild patchy T2 hypersignal inboth the proximal medial tibial metaphysis and medial femoral condyle,likely secondary to repeated microtrauma from chronic change. This shouldbe correlated clinically.4. Joint effusion and Lombardo's cyst.5. Evidence of lateral subluxation of the patella, possibly from oldpatellar dislocation with an irregular and somewhat redundant medialpatellar retinaculum which is intact.6. Mild medial marrow edema as described above.7. Subchondral cyst formation and mild edema anterior lateral femoralcondyle; and again, likely secondary to chronic changes from repeatedmicrotrauma8. Other findings as described above.Accredited by the [employer] in MR.Lukasz Fuentes, JANELLE/Imtiaz sparks for referring SACHIN ALVES to our office. Electronically Signed - LUKASZ FUENTES DO 01/12/20 17:53 Name Value Range Interpretation Code Description Data Rosalinda rce(s) Supporting Document(s) ID Date Data Source [id number] 01/09/2020 09:20:00 AM EST [facility] ([facility], ) Name Value Range Interpretation Code Description Data [facility] rce(s) Supporting Document(s) Coronavirus 2019 Nasopharygeal Laboratory test result [facility] ([facility], ) This nucleic acid amplification test was developed and its performance characteristics determined by [facility]. Nucleic acid amplification tests include PCR and [...] detected) result in this assay. Performed at: [facility] [address] [facility], [place], [place] [id number] Day Care Assistant: Serina Lord PhD, Phone: [phone] Not Detected ID Date Data Source [id number] 01/09/2020 09:20:00 AM EST [facility] Name Value Range Interpretation Code Description Data Rosalinda rce(s) Supporting Document(s) SARS coronavirus 2 RNA [facility] This lab was ordered by [facility] and reported by [facility]. ID Date Data Source [id number] 04/13/2019 10:04:00 AM EST [facility] ([facility]) Name Value Range Interpretation Code Description Data Rosalinda rce(s) Supporting Document(s) Laboratory test finding (navigational concept) <pending> [facility] ([facility]) Procedure Social History Code Duration Value Status Description Data Source(s ) Smoking 02/04/2020 12:00:00 AM EST Never Smoker completed Never S moker eCW1 ([facility]) Smoking 02/04/2020 12:00:00 AM EST Never Smoker completed Never S moker eCW1 ([facility]) Smoking 03/31/2019 12:00:00 AM EST Patient has never smoked co mpleted Patient has never smoked [facility] ([facility]) Vital Signs ID Date Data Source UNK Name Value Range Interpretation Code Description Data Source(s) Body surface area Derived from formula 2.51 m2 2.51 m2 [facility] ([facility]) Body weight 130.637 kg 130.637 kg [facility] ([facility]) [place] body weight 184 [lb_av] 184 [lb_av] [facility] T ([facility]) Body mass index (BMI) [Ratio] 38.0 kg/m2 38.0 k g/m2 [facility] ([facility]) Body weight 288.00 [lb_av] 288.00 [lb_av] [facility] T ([facility]) Body height 73 [in_i] 73 [in_i] [facility] ([facility], ) 6'1" Body temperature 98.0 [degF] 98.0 [degF] [facility] ([facility], ) Diastolic blood pressure 82 mm[Hg] 82 mm[Hg] eCW1 ([facility]) Systolic blood pressure 134 mm[Hg] 134 mm[Hg] e CW1 ([facility]) Body temperature 96.8 [degF] 96.8 [degF] eCW1 ( [facility]) Respiratory rate 18 /min 18 /min eCW1 ([facility]) Heart rate 76 /min 76 /min eCW1 ([facility]) Body mass index (BMI) [Ratio] 49.20 kg/m2 49.20 kg/m2 eCW1 ([facility]) Body height 62 [in_i] 62 [in_i] eCW1 ([facility]) Body weight 269 [lb_av] 269 [lb_av] eCW1 ([facility]) Body temperature 97.7 [degF] 97.7 [degF] [facility] ([facility], ) Diastolic blood pressure 80 mm[Hg] 80 mm[Hg] eCW1 ([facility]) Systolic blood pressure 142 mm[Hg] 142 mm[Hg] e CW1 ([facility]) Body temperature 97.8 [degF] 97.8 [degF] eCW1 ( [facility]) Respiratory rate 18 /min 18 /min eCW1 ([facility]) Heart rate 74 /min 74 /min eCW1 ([facility]) Body mass index (BMI) [Ratio] 49.20 kg/m2 49.20 kg/m2 eCW1 ([facility]) Body height 62 [in_us] 62 [in_us] eCW1 ([facility]) Body weight Measured 269 [lb_av] 269 [lb_av] eC W1 ([facility]) Body mass index (BMI) [Ratio] 33.8 kg/m2 33.8 k g/m2 [facility] ([facility]) Body weight 263.50 [lb_av] 263.50 [lb_av] MEDEN T ([facility]) Body height 74 [in_i] 74 [in_i] [facility] ([facility]) 6'2" Body temperature 97.7 [degF] 97.7 [degF] [facility] ([facility]) Diastolic blood pressure 80 mm[Hg] 80 mm[Hg] eCW1 ([facility]) Systolic blood pressure 122 mm[Hg] 122 mm[Hg] e CW1 ([facility]) Body temperature 98.8 [degF] 98.8 [degF] eCW1 ( [facility]) Respiratory rate 18 /min 18 /min eCW1 ([facility]) Heart rate 71 /min 71 /min eCW1 ([facility]) Body mass index (BMI) [Ratio] 48.10 kg/m2 48.10 kg/m2 eCW1 ([facility]) Body height 62 [in_us] 62 [in_us] eCW1 ([facility]) Body weight Measured 263 [lb_av] 263 [lb_av] eC W1 ([facility]) Heart rate 62 /min 62 /min [facility] ([facility], ) Diastolic blood pressure 78 mm[Hg] 78 mm[Hg] [facility] ([facility], ) Systolic blood pressure 124 mm[Hg] 124 mm[Hg] M EDENT ([facility], ) Body surface area Derived from formula 2.44 m2 2.44 m2 [facility] ([facility], ) Body weight 119.297 kg 119.297 kg [facility] ([facility], ) [place] body weight 190 [lb_av] 190 [lb_av] MEDEN T ([facility], ) Body mass index (BMI) [Ratio] 33.8 kg/m2 33.8 k g/m2 [facility] ([facility], ) Body weight 263.00 [lb_av] 263.00 [lb_av] MEDEN T ([facility], ) Body height 74 [in_i] 74 [in_i] [facility] ([facility], ) 6'2" Oxygen saturation in Arterial blood by Pulse oximetry 95 % 95 % [facility] ([facility]) Body weight 120.204 kg 120.204 kg [facility] ([facility]) Body mass index (BMI) [Ratio] 34.0 kg/m2 34.0 k g/m2 [facility] ([facility]) Body weight 265.00 [lb_av] 265.00 [lb_av] MEDEN T ([facility]) Body height 74 [in_i] 74 [in_i] [facility] ([facility]) 6'2" Diastolic blood pressure 70 mm[Hg] 70 mm[Hg] eCW1 ([facility]) Systolic blood pressure 128 mm[Hg] 128 mm[Hg] e CW1 ([facility]) Body temperature 97.2 [degF] 97.2 [degF] eCW1 ( [facility]) Respiratory rate 18 /min 18 /min eCW1 ([facility]) Heart rate 65 /min 65 /min eCW1 ([facility]) Body mass index (BMI) [Ratio] 48.46 kg/m2 48.46 kg/m2 eCW1 ([facility]) Body height 62 [in_us] 62 [in_us] eCW1 ([facility]) Body weight Measured 265 [lb_av] 265 [lb_av] eC W1 ([facility])
[2020-03-30] MEDS ORDERED: propofoL 500 MG/50 ML VIAL As Ordered ONE (08:20)
[2020-03-30] MEDS ORDERED: ONDANSETRON 4MG/2ML VIAL As Ordered ONE (08:20)
[2020-03-30] MEDS ORDERED: MIDAZOLAM INJ 2MG/2ML VIAL (J2250 PER 1MG) As Ordered ONE (08:20)
[2020-03-30] MEDS ORDERED: LIDOCAINE 2% 100MG/5ML SDV (FOR ANES.) As Ordered ONE (08:20)
[2020-03-30] MEDS ORDERED: fentaNYL 250 MCG/5 ML INJECTION (J3010) As Ordered ONE (08:20)
[2020-03-30] MEDS ORDERED: LIDOCAINE 1% MDV 20ML VIAL As Ordered ONE (10:11)
[2020-03-30] MEDS ORDERED: BUPIVACAINE/EPIN 0.25% 30 ML VIAL As Ordered ONE (10:21)
[2020-03-30 11:35] VITALS: BP 119/78
--- NOTE | 2020-03-30 14:25 | RO ---
OPERATIVE NOTE DATE OF OPERATION: 03/30/2020 PREOPERATIVE DIAGNOSIS: Right carpal tunnel syndrome. POSTOPERATIVE DIAGNOSIS: Right carpal tunnel syndrome. PLANNED PROCEDURE: Right open carpal tunnel release. PROCEDURE PERFORMED: Right open carpal tunnel release. SURGEON: Lakhwinder Barros MD. PREPARER SAMPLES AND REPAIRS: Bao. TYPE OF ANESTHETIC: Local with sedation. OPERATIVE PREAMBLE: This is a 59-year-old male (cut out) open carpal tunnel release. I reiterated the pros, cons, risks, and benefits of going ahead and proceeding with surgery. OPERATIVE REPORT: Patient was brought to the operating theater and then placed supine on the operating room table. Local sedation anesthetic was employed. The patient was placed supine and bed turned 90 degrees with the hand table at the patient's right side. Limb was prepped and draped in the usual sterile fashion allowing over three minutes for the chlorhexidine base prep solution to thoroughly dry. Preoperative time out was performed confirming the site, the patient, and surgery. I began by infiltrating 6 mL of 0.25% Marcaine with 1:100,000 in and around the proposed incision site. This was a 2 cm incision centered just distally to the palmar wrist crease in line with the fourth digit. Once the local had given time to work, I made a longitudinal incision. I carried dissection down through skin and subcutaneous tissue. I achieved meticulous hemostasis. Incised the palmar fascia in line with the skin incision. I incised the transverse carpal tunnel ligament in line with the skin incision fully proximally and distally. I ensured a full release. I did excise a small leaflet in the middle of the transverse carpal tunnel ligament to ensure complete release as he had quite thick tissues in this area. The wound was thoroughly irrigated. Subcutaneous tissue was closed with interrupted 2-0 Vicryl sutures and skin with 3-0 Ethilon in a horizontal mattress fashion. Skin was cleaned with a wet and dry dressing followed by application of a 4 x 8 gauze and over wrapped with a Renan dressing. Patient was transferred off the operating table and taken to the Postanesthetic Care Unit in stable condition. All sponge count, needle count, and instrument counts were correct. Estimated blood loss 10 mL. Plan for patient is to begin immediate hand, wrist, and elbow range of motion but avoid heavy lifting or gripping for six weeks. He will follow up with me in the office in two weeks' time and be discharged home according to Day Surgery criteria. The patient has requested ibuprofen 800 mg p.o. t.i.d. as needed for postoperative pain control due to adverse reaction to Percocet last case.
== END 2020-03-30 11:43 | disposition home or self-care (01) ==
LOC: M SDC 07:53
PROVIDERS: ATTEND Orthopaedic Surgery Sports Medicine
DX: G56.01 Carpal tunnel syndrome, right upper limb (principal); I10 Essential (primary) hypertension; G47.33 Obstructive sleep apnea (adult) (pediatric); M19.90 Unspecified osteoarthritis, unspecified site; R06.83 Snoring; Z79.899 Other long term (current) drug therapy
CPT/HCPCS: 64721; J0690; J2250; J2405; J3010

== ENCOUNTER → 2020-05-13 | Outpatient (CLI) | payer OTHER ==
[~2020-05-13] MED LIST changes: +HYDR-3490 PO; -HYDR25TAB PO; +LISI10TA22 PO; -LISI10TA4 PO; -ceFAZolin SOD 2 GM in IV 1 EA IV ONE
== END ==
LOC: M LABSMTC 10:59
PROVIDERS: ATTEND Anesthesiology
DX: Z01.812 Encounter for preprocedural laboratory examination (principal)

== ENCOUNTER 2020-05-18 09:47 | Day surgery (SDC) | payer OTHER ==
[~2020-05-18] VITALS: Ht 185.4 cm; Wt 128.5 kg
[~2020-05-18 09:47] MED LIST changes: +LIDOCAINE 1% MDV 20ML VIAL SQ PRN; +LR 1,000 ML IV ONE; +ceFAZolin SOD 2 GM in IV 1 EA IV ONE
[2020-05-18 10:55] LABS: BLOOD UREA NITROGEN 22 MG/DL (7-18); CALCIUM LEVEL 9.7 MG/DL (8.8-10.2); CARBON DIOXIDE LEVEL 31 MEQ/L (21-32); CHLORIDE LEVEL 105 MEQ/L (98-107); CREATININE FOR GFR 0.93 MG/DL (0.70-1.30); GLOMERULAR FILTRATION RATE > 60.0 (>49); GLUCOSE, FASTING 111 MG/DL (70-100); POTASSIUM SERUM 3.8 MEQ/L (3.5-5.1); SODIUM LEVEL 141 MEQ/L (136-145)
[2020-05-18] MEDS ORDERED: LIDOCAINE W/EPINEPHRINE 1% 20ML VIAL As Ordered ONE (16:15)
[2020-05-18] MEDS ORDERED: LIDOCAINE 2% 100MG/5ML SDV (FOR ANES.) As Ordered ONE (16:23)
[2020-05-18] MEDS ORDERED: propofoL 200 MG/20 ML VIAL As Ordered ONE (16:24)
[2020-05-18] MEDS ORDERED: fentaNYL 100 MCG/2 ML INJECTION (J3010) As Ordered ONE (16:24)
[2020-05-18] MEDS ORDERED: ONDANSETRON 4MG/2ML VIAL As Ordered ONE (16:24)
[2020-05-18] MEDS ORDERED: dexameTHASONE 4 MG/ML 1ML VIAL (J1100 PER 1MG) As Ordered ONE (16:24)
[2020-05-18] MEDS ORDERED: MIDAZOLAM INJ 2MG/2ML VIAL (J2250 PER 1MG) As Ordered ONE (16:24)
[2020-05-18] MEDS ORDERED: METOCLOPRAMIDE INJ 10MG/2ML VIAL (J2765 PER 1) As Ordered ONE (17:05)
[2020-05-18] MEDS ORDERED: KETOROLAC 60MG 2ML VIAL As Ordered ONE (17:06)
[2020-05-18] MEDS ORDERED: ACETAMINOPHEN 1000MG 100ML IV BTL (OFIRMEV) (J0131 PER 10MG) As Ordered ONE (17:14)
--- NOTE | 2020-05-18 17:32 | ROOPDOC ---
[facility] Report Of Operation Report of Operation DATE OF PROCEDURE: 05/18/20 PREPROCEDURE DIAGNOSES: Left knee Medial meniscus tear and osteoarthritis. POSTPROCEDURE DIAGNOSES: Left knee Medial meniscus tear and osteoarthritis. PROCEDURE: Left knee arthroscopy partial medial meniscectomy and debridement. SURGEON: Dr. 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 anesthesia Dr. Gore. ESTIMATED BLOOD LOSS: Approximately 20 mL. COMPLICATIONS: None. REMARKS: PROCEDURE NOTE: This 60-year-old man has osteoarthrosis of his knee as well as a degenerative medial meniscus tear. Having mostly pain on the medial side of his knee. We decided go ahead with arthroscopy partial medial meniscectomy and debridement. I reminded them of the pros and cons risks and benefits of nonsurgical versus surgical treatment. I marked the left lower extremity. DESCRIPTION OF PROCEDURE: Patient was brought to the operating theater. He was placed supine on the operating room table. All bony prominences were padded. Tourniquet was applied to the left thigh and appropriately padded. Stress positioner was used to the patient's left side. General anesthesia was induced. 2 g of IV Ancef was administered prior to the start of the case. Limb was prepp ed and draped in the usual sterile fashion allowing over 3 minutes for the prep solution drying time chlorhexidine based to occur. A preoperative timeout was performed to confirm the patient, site, and the operation. I began by elevating the limb and inflating the tourniquet to 250 mmHg. I made standard anterolateral and anteromedial arthroscopy portals. I performed a thorough diagnostic arthroscopy. I made an accessory anterior medial portal. Patellofemoral cartilage had grade 4 changes. No loose bodies. Medial and lateral gutters were entered. Cartilage in the medial compartment had grade 2 changes on both sides. Any loose cartilage flaps gently debrided. On the lateral compartment had grade 1-2 changes on both the femoral and tibial side. ACL and PCL appeared normal. Lateral meniscus was stable and solid to probing. Medial meniscus had a degenerative Type horizontal and vertical type tear near the posterior aspect of the body of the medial meniscus. This was debrided using basket forceps as well as shaving instrument down to stable margins removing approximately 5-10% of the overall surface area of the meniscus after it was sta ble and solid to probing. Anterior and posterior roots and horns appeared normal. Arthroscopy pictures were taken and saved to the system. Knee was thoroughly irrigated. Case was terminated. Tourniquet was let down. 10 mL of quarter percent Marcaine was instilled in and around the portal sites. Steri-Strips followed by Adaptic 4 x 8 gauze and abdominal dressing pads were then placed and wrapped with sterile 6 inch Roderick bandages. Patient was woken up from general anesthetic transferred off the operating room table and taken to postanesthetic care unit in stable condition. All sponge, needle, and instrument counts are correct. No complications. Plan for the patient is being weightbearing and activity as tolerated. Discharge home according to day surgery criteria. Follow up in the office in 2 weeks' time. Prescription has been sent in to the pharmacy of choice electronically. LAKHWINDER KAISER MD May 18, 2020 17:32
[2020-05-18] MEDS ORDERED: fentaNYL 100 MCG/2 ML INJECTION (J3010) IV PRN (18:05)
[2020-05-18] MEDS ORDERED: ONDANSETRON 4MG/2ML VIAL IV PRN ×2 (18:05)
[2020-05-18] MEDS ORDERED: LR 1,000 ML IV SCH (18:05)
[2020-05-18] MEDS ORDERED: IBUPROFEN 800 MG TAB PO PRN (18:05)
[2020-05-18] MEDS ORDERED: oxyCODONE 5MG TAB PO PRN (18:05)
[2020-05-18] MEDS ORDERED: ACETAMINOPHEN TAB 650MG DOSE (2X325MG) PO PRN (18:05)
[2020-05-18 19:00] VITALS: BP 135/81
--- NOTE | 2020-05-19 09:22 | ECGEPIP ---
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
== END 2020-05-18 19:00 | disposition home or self-care (01) ==
LOC: M SDC 09:47
PROVIDERS: ATTEND Orthopaedic Surgery Sports Medicine
DX: M17.12 Unilateral primary osteoarthritis, left knee (principal); M23.304 Other meniscus derangements, unspecified medial meniscus, left knee; I10 Essential (primary) hypertension; G47.33 Obstructive sleep apnea (adult) (pediatric); Z79.899 Other long term (current) drug therapy; Z79.82 Long term (current) use of aspirin
CPT/HCPCS: 29881; 36415; 80048; 93005; J0131; J0690; J1100; J1885; J2250; J2405; J2765; J3010

== ENCOUNTER → 2020-08-03 | Outpatient (REF) | payer OTHER ==
[~2020-08-03] MED LIST changes: -LIDOCAINE 1% MDV 20ML VIAL SQ PRN; -LR 1,000 ML IV ONE; -ceFAZolin SOD 2 GM in IV 1 EA IV ONE
[2020-08-03 14:02] LABS: CHOLESTEROL RISK RATIO 4.75 (<5)
== END ==
LOC: M PLALAB 10:23
PROVIDERS: ATTEND Family Medicine
DX: E78.5 Hyperlipidemia, unspecified (principal)

== ENCOUNTER → 2021-03-10 | Outpatient (REF) | payer BC ==
[2021-03-10 14:16] LABS: HEMOGLOBIN A1c 8.2 %
== END ==
LOC: M SFHCADAM 09:50
PROVIDERS: ATTEND Family Medicine
DX: R73.03 Prediabetes (principal)

== ENCOUNTER → 2021-06-01 | Outpatient (CLI) | payer BC ==
[2021-06-01 13:09] LABS: BASO # 0.1 10^3/uL (0.0-0.2); BASO % 0.9 % (0.0-1.0); EOS # 0.2 10^3/uL (0.0-0.5); EOS % 4.3 % (0.0-3.0); HEMATOCRIT 40.5 % (42.0-52.0); LYMPH # 1.9 10^3/uL (1.5-5.0); LYMPH % 33.7 % (24.0-44.0); MEAN CORPUSCULAR HGB CONC 34.6 g/dl (32.0-36.5); MEAN CORPUSCULAR VOLUME 92.5 fl (80.0-96.0); MONO # 0.5 10^3/uL (0.0-0.8); MONO % 9.4 % (2.0-8.0); NEUTROPHILS # 2.9 10^3/uL (1.5-8.5); NEUTROPHILS % 51.5 % (36.0-66.0); PLATELET COUNT, AUTOMATED 215 10^3/uL (150-450); RED BLOOD COUNT 4.38 10^6/uL (4.30-6.10); WHITE BLOOD COUNT 5.6 10^3/uL (4.0-10.0)
[2021-06-01 13:30] LABS: HEMOGLOBIN A1c 7.9 %
[2021-06-01 13:46] LABS: ALT/SGPT 93 U/L (12-78); BILIRUBIN,TOTAL 0.8 MG/DL (0.2-1.0); BLOOD UREA NITROGEN 18 MG/DL (7-18); CALCIUM LEVEL 9.5 MG/DL (8.8-10.2); CARBON DIOXIDE LEVEL 31 MEQ/L (21-32); CHLORIDE LEVEL 104 MEQ/L (98-107); CHOLESTEROL LEVEL 117 MG/DL (<200); CHOLESTEROL RISK RATIO 2.853 (<5); CREATININE FOR GFR 0.94 MG/DL (0.70-1.30); GLOMERULAR FILTRATION RATE > 60.0 (>49); GLUCOSE, FASTING 125 MG/DL (70-100); HDL CHOLESTEROL 41 MG/DL (>40); LDL CHOLESTEROL 60 MG/DL (<100); NON-HDL-C 76 MG/DL; POTASSIUM SERUM 3.9 MEQ/L (3.5-5.1); SODIUM LEVEL 141 MEQ/L (136-145); TRIGLYCERIDES LEVEL 78 MG/DL (<150)
== END ==
LOC: M PLALAB 10:39
PROVIDERS: ATTEND Family Medicine
DX: I10 Essential (primary) hypertension (principal)

== ENCOUNTER → 2021-08-25 | Outpatient (CLI) | payer BC ==
[2021-08-25 13:39] LABS: HEMOGLOBIN A1c 7.2 %
[2021-08-25 13:52] LABS: BLOOD UREA NITROGEN 20 MG/DL (7-18); CALCIUM LEVEL 10.5 MG/DL (8.8-10.2); CARBON DIOXIDE LEVEL 32 MEQ/L (21-32); CHLORIDE LEVEL 106 MEQ/L (98-107); CREATININE FOR GFR 0.99 MG/DL (0.70-1.30); GLOMERULAR FILTRATION RATE > 60.0 (>49); GLUCOSE, FASTING 131 MG/DL (70-100); SODIUM LEVEL 144 MEQ/L (136-145)
== END ==
LOC: M PLALAB 11:22
PROVIDERS: ATTEND Family Medicine
DX: E11.9 Type 2 diabetes mellitus without complications (principal)

== ENCOUNTER → 2021-12-07 | Outpatient (CLI) | payer BC | LOC: M SOG 08:18 | PROVIDERS: ATTEND Orthopaedic Surgery Adult Reconstructive Orthopaedic Surgery | DX: M25.562 Pain in left knee (principal) ==

== ENCOUNTER → 2022-01-16 | Outpatient (CLI) | payer MEDICARE ==
[~2022-01-16] MED LIST changes: +ATOR1TAB21 PO; +METF-838 PO; +VITMTA PO
== END ==
LOC: M RAD 10:28
PROVIDERS: ATTEND Orthopaedic Surgery Adult Reconstructive Orthopaedic Surgery
DX: M17.12 Unilateral primary osteoarthritis, left knee (principal)

== ENCOUNTER 2022-01-22 12:13 | Outpatient (RCR) | payer MEDICARE | END 2022-01-24 | LOC: M PT 12:13 | PROVIDERS: ATTEND Orthopaedic Surgery Adult Reconstructive Orthopaedic Surgery | DX: M17.12 Unilateral primary osteoarthritis, left knee (principal) ==

== ENCOUNTER → 2022-01-25 | Outpatient (CLI) | payer BC, MEDICARE | LOC: M LABSMTC 09:48 | PROVIDERS: ATTEND Anesthesiology | DX: Z01.812 Encounter for preprocedural laboratory examination (principal); Z11.52 Encounter for screening for COVID-19 ==

== ENCOUNTER 2022-01-30 05:59 | Inpatient (IN) | payer MEDICARE ==
[~2022-01-30] VITALS: Ht 188 cm; Wt 122.0 kg
[~2022-01-30 05:59] MED LIST changes: +CURCPOW PO; -CURCPOW XX
[2022-01-30] MEDS ORDERED: PREGABALIN 25 MG CAP (LYRICA) PO ONE (06:00)
[2022-01-30] MEDS ORDERED: ROPIVA 125MG/EPINEPH 0.25MG/CLONID 40MCG/KETOR 15MG IN NS 50ML SYRINGE PA ONE (06:00)
[2022-01-30] MEDS ORDERED: ACETAMINOPHEN 500 MG TAB PO ONE (06:00)
[2022-01-30] MEDS ORDERED: NS 1,000 ML IV ONE (06:00)
[2022-01-30] MEDS ORDERED: NAPROXEN 250 MG TAB PO ONE (06:00)
[2022-01-30] MEDS ORDERED: LR 1,000 ML IV SCH ×2 (06:25→09:55)
[2022-01-30] MEDS ORDERED: TRANEXAMIC ACID 100 MG/ML 10ML VIAL As Ordered ONE (07:10)
[2022-01-30] MEDS ORDERED: VANCOMYCIN 1000MG/20ML VIAL As Ordered ONE (07:15)
[2022-01-30] MEDS ORDERED: MIDAZOLAM INJ 2MG/2ML VIAL (J2250 PER 1MG) As Ordered ONE (07:16)
[2022-01-30] MEDS ORDERED: LIDOCAINE 2% 100MG/5ML SDV (FOR ANES.) As Ordered ONE (07:16)
[2022-01-30] MEDS ORDERED: propofoL 200 MG/20 ML VIAL As Ordered ONE ×4 (07:16→08:54)
[2022-01-30] MEDS ORDERED: fentaNYL 100 MCG/2 ML INJECTION As Ordered ONE (07:16)
[2022-01-30] MEDS ORDERED: ceFAZolin SOD 1 GM in D5W MINI-BAG PLUS 50 ML IV ONE (07:25)
[2022-01-30] MEDS ORDERED: ceFAZolin SOD 2 GM in IV 1 EA IV ONE (07:25)
[2022-01-30] MEDS ORDERED: ePHEDrine SULFATE 25 MG/5 ML(5MG/ML) SYRINGE As Ordered ONE ×2 (08:08→08:23)
[2022-01-30] MEDS ORDERED: PHENYLephrine 500MCG 5ML (100MCG/ML) SYRINGE As Ordered ONE ×2 (08:09→09:07)
[2022-01-30] MEDS ORDERED: ONDANSETRON 4MG 2ML VIAL As Ordered ONE (08:36)
[2022-01-30] MEDS ORDERED: GLYCOPYRROLATE INJ 0.2 MG/ML 2 ML VIAL As Ordered ONE (08:36)
[2022-01-30] MEDS ORDERED: ONDANSETRON 4MG 2ML VIAL IV PRN ×2 (09:55→10:25)
[2022-01-30] MEDS ORDERED: fentaNYL 100 MCG/2 ML INJECTION IV PRN (09:55)
[2022-01-30] MEDS ORDERED: MORPHINE 2 MG/ML 1ML VIAL IV PRN (09:55)
[2022-01-30] MEDS ORDERED: METOCLOPRAMIDE INJ 10MG/2ML VIAL IV PRN (09:55)
[2022-01-30] MEDS ORDERED: oxyCODONE 5MG TAB PO PRN (09:55)
[2022-01-30] MEDS ORDERED: SENNA 8.6 MG TAB (SENOKOT) PO PRN (10:25)
[2022-01-30] MEDS: ACETAMINOPHEN TAB 650MG DOSE (2X325MG) PO SCH ×2 (12:00→16:52)
[2022-01-30] MEDS ORDERED: GLUCAGON INJ 1MG VIAL SC PRN (14:55)
[2022-01-30] MEDS ORDERED: GLUCOSE 4GM CHEW TABLET PO PRN (14:55)
[2022-01-30] MEDS ORDERED: DEXTROSE 50% 50 ML SYRINGE IV PRN (14:55)
[2022-01-30 16:30] VITALS: BP 137/80
[2022-01-30] MEDS: LR 1,000 ML IV SCH ×2 (16:37→20:25)
[2022-01-30] MEDS: ceFAZolin SOD 2 GM in IV 1 EA IV SCH (16:52)
[2022-01-30] MEDS: INSULIN LISPRO (NovoLOG) PER UNIT SC SCH (17:30)
[2022-01-30 20:53] VITALS: BP 131/77
[2022-01-30] MEDS ORDERED: INSULIN LISPRO (NovoLOG) PER UNIT SC SCH (21:00)
[2022-01-30] MEDS: ASPIRIN 81MG ENTERIC TABLET PO SCH (21:05)
[2022-01-30] MEDS: DOCUSATE SODIUM 100MG CAPSULE PO SCH (21:05)
[2022-01-30] MEDS: NAPROXEN 250 MG TAB PO SCH (21:05)
[2022-01-30] MEDS: traMADol 50 MG TAB PO PRN (21:06)
[2022-01-31] MEDS: ACETAMINOPHEN TAB 650MG DOSE (2X325MG) PO SCH ×4 (00:58→12:49)
[2022-01-31] MEDS: ceFAZolin SOD 2 GM in IV 1 EA IV SCH (00:59)
[2022-01-31 02:00] VITALS: BP 125/74
[2022-01-31 05:39] VITALS: BP 135/80
[2022-01-31 05:59] LABS: HEMATOCRIT 36.4 % (42.0-52.0); HEMOGLOBIN 12.2 g/dl (13.5-17.5); MEAN CORPUSCULAR HEMOGLOBIN 31.3 pg (27.0-33.0); MEAN CORPUSCULAR HGB CONC 33.5 g/dl (32.0-36.5); MEAN CORPUSCULAR VOLUME 93.3 fl (80.0-96.0); PLATELET COUNT, AUTOMATED 172 10^3/uL (150-450); WHITE BLOOD COUNT 7.9 10^3/uL (4.0-10.0)
[2022-01-31] MEDS: LR 1,000 ML IV SCH (06:25)
[2022-01-31 06:50] LABS: BLOOD UREA NITROGEN 17 MG/DL (9-23); CALCIUM LEVEL 8.6 MG/DL (8.3-10.6); CARBON DIOXIDE LEVEL 28 MMOL/L (20-31); CHLORIDE LEVEL 101 MMOL/L (98-107); GLOMERULAR FILTRATION RATE > 60.0 (>49); GLUCOSE, FASTING 151 MG/DL (74-106); POTASSIUM SERUM 3.9 MMOL/L (3.5-5.1); SODIUM LEVEL 138 MMOL/L (136-145)
[2022-01-31] MEDS: INSULIN LISPRO (NovoLOG) PER UNIT SC SCH ×2 (07:51→12:00)
[2022-01-31] MEDS: ASPIRIN 81MG ENTERIC TABLET PO SCH (07:52)
[2022-01-31 07:55] VITALS: BP 135/80
[2022-01-31] MEDS: DOCUSATE SODIUM 100MG CAPSULE PO SCH (07:56)
[2022-01-31] MEDS: NAPROXEN 250 MG TAB PO SCH (07:57)
[2022-01-31] MEDS ORDERED: ATORVASTATIN 20 MG TAB PO SCH (09:00)
[2022-01-31] MEDS ORDERED: FERROUS SULFATE 325MG TAB PO SCH (09:00)
[2022-01-31] MEDS ORDERED: MULTIVITAMINS/MINERALS THERAP 1 TAB PO SCH (09:00)
[2022-01-31] MEDS ORDERED: ASCORBIC ACID 500 MG TAB PO SCH (09:00)
[2022-01-31] MEDS ORDERED: NAPR-849 PO (09:56)
[2022-01-31] MEDS ORDERED: ASPI81TAEC PO (09:56)
[2022-01-31] MEDS ORDERED: OXYC-517 PO (09:56)
[2022-01-31] MEDS ORDERED: ACET1TAB55 PO (09:56)
[2022-01-31] MEDS ORDERED: ASCO50TA PO (09:56)
[2022-01-31] MEDS ORDERED: SENN18TA PO (09:56)
[2022-01-31] MEDS ORDERED: TRAM50TA2 PO (10:26)
[2022-01-31 10:30] VITALS: BP 133/79
[2022-01-31] MEDS: traMADol 50 MG TAB PO PRN (12:49)
== END 2022-01-31 13:30 | disposition home health service (06) | DRG 470 ==
LOC: M SDC 05:59 → M ED INP 14:54 → M MS5PR 16:20
PROVIDERS: ADMIT Student in an Organized Health Care Education/Training Program; ATTEND Orthopaedic Surgery Adult Reconstructive Orthopaedic Surgery
PROC: 8E0Y0CZ Robotic Assisted Procedure of Lower Extremity, Open Approach (ICD-10-PCS; 2022-01-30)
PROC: 0SRD0JZ Replacement of Left Knee Joint with Synthetic Substitute, Open Approach (ICD-10-PCS; principal; 2022-01-30 07:30)
DX: M17.12 Unilateral primary osteoarthritis, left knee (principal); G47.33 Obstructive sleep apnea (adult) (pediatric); I10 Essential (primary) hypertension; E78.5 Hyperlipidemia, unspecified; E11.9 Type 2 diabetes mellitus without complications; D50.9 Iron deficiency anemia, unspecified

== ENCOUNTER → 2022-02-12 | Outpatient (CLI) | payer MEDICARE ==
[~2022-02-12] MED LIST changes: +ACET1TAB55 PO; +ASCO50TA PO; +ASPI81TAEC PO; +NAPR-849 PO; +OXYC-517 PO; +SENN18TA PO; +TRAM50TA2 PO
== END ==
LOC: M SOG 07:55
PROVIDERS: ATTEND Orthopaedic Surgery Adult Reconstructive Orthopaedic Surgery
DX: M17.12 Unilateral primary osteoarthritis, left knee (principal)

== ENCOUNTER → 2022-02-27 | Outpatient (CLI) | payer MEDICARE ==
[2022-02-27 14:17] LABS: HEMATOCRIT 40.2 % (42.0-52.0); HEMOGLOBIN 13.5 g/dl (13.5-17.5); MEAN CORPUSCULAR HEMOGLOBIN 31.5 pg (27.0-33.0); MEAN CORPUSCULAR HGB CONC 33.6 g/dl (32.0-36.5); MEAN CORPUSCULAR VOLUME 93.9 fl (80.0-96.0); PLATELET COUNT, AUTOMATED 254 10^3/uL (150-450); RED BLOOD COUNT 4.28 10^6/uL (4.30-6.10); WHITE BLOOD COUNT 6.1 10^3/uL (4.0-10.0)
[2022-02-27 14:27] LABS: HEMOGLOBIN A1c 6.4 % (4.0-6.0)
[2022-02-27 14:46] LABS: CREATININE, URINE 90.4 MG/DL; MALB URINE SIEMENS < 3.0 MG/DL; MAU/CREAT RATIO 3.3 MCG/MG (0.0-30.0); PROSTATIC SPECIFIC AG MONITOR 2.37 NG/ML (< 4.00)
[2022-02-27 15:18] LABS: ALKALINE PHOSPHATASE 109 U/L (46-116); ALT/SGPT 30 U/L (7.0-40); AST/SGOT 20 U/L (<34); BILIRUBIN,TOTAL 0.7 MG/DL (0.3-1.2); BLOOD UREA NITROGEN 17 MG/DL (9-23); CALCIUM LEVEL 9.7 MG/DL (8.3-10.6); CARBON DIOXIDE LEVEL 29 MMOL/L (20-31); CHLORIDE LEVEL 100 MMOL/L (98-107); CHOLESTEROL LEVEL 120 MG/DL (<200); CHOLESTEROL RISK RATIO 2.89 (<5); CREATININE FOR GFR 0.83 MG/DL (0.70-1.30); GLOMERULAR FILTRATION RATE > 60.0 (>49); GLUCOSE, FASTING 128 MG/DL (74-106); HDL CHOLESTEROL 41.4 MG/DL (>40); LDL CHOLESTEROL 56.6 MG/DL (<100); NON-HDL-C 79 MG/DL; POTASSIUM SERUM 4.1 MMOL/L (3.5-5.1); SODIUM LEVEL 141 MMOL/L (136-145); TOTAL PROTEIN 7.2 G/DL (5.7-8.2); TRIGLYCERIDES LEVEL 110 MG/DL (<150)
== END ==
LOC: M PLALAB 09:47
PROVIDERS: ATTEND Family Medicine
DX: E11.9 Type 2 diabetes mellitus without complications (principal); R97.20 Elevated prostate specific antigen [PSA]

== ENCOUNTER → 2022-05-07 | Outpatient (CLI) | payer MEDICARE | LOC: M SOG 07:57 | PROVIDERS: ATTEND Orthopaedic Surgery | DX: M25.552 Pain in left hip (principal) ==

== ENCOUNTER 2022-07-03 07:07 | Day surgery (SDC) | payer MEDICARE ==
[~2022-07-03] VITALS: Ht 188 cm; Wt 124.3 kg
[~2022-07-03 07:07] MED LIST changes: +LIDOCAINE 2% 100MG/5ML SDV (FOR ANES.) As Ordered ONE; +NS 1,000 ML IV ONE; +propofoL 200 MG/20 ML VIAL As Ordered ONE
[2022-07-03 09:10] VITALS: BP 125/76
== END 2022-07-03 09:18 | disposition home or self-care (01) ==
LOC: M OPP 07:07
PROVIDERS: ATTEND Internal Medicine Gastroenterology
DX: Z86.010 Personal history of colon polyps (principal); K64.8 Other hemorrhoids; G47.33 Obstructive sleep apnea (adult) (pediatric); Z99.89 Dependence on other enabling machines and devices; Z79.2 Long term (current) use of antibiotics; Z79.82 Long term (current) use of aspirin; Z79.84 Long term (current) use of oral hypoglycemic drugs; Z79.899 Other long term (current) drug therapy

== ENCOUNTER → 2023-03-28 | Outpatient (CLI) | payer MEDICARE ==
[~2023-03-28] MED LIST changes: -LIDOCAINE 2% 100MG/5ML SDV (FOR ANES.) As Ordered ONE; -NS 1,000 ML IV ONE; +SENN-111 PO; -SENN18TA PO; -propofoL 200 MG/20 ML VIAL As Ordered ONE
[2023-03-28 14:10] LABS: ALBUMIN 4.1 G/DL (3.2-5.2); ALKALINE PHOSPHATASE 91 U/L (46-116); ALT/SGPT 55 U/L (7.0-40); AST/SGOT 25 U/L (<34); BILIRUBIN,TOTAL 0.7 MG/DL (0.3-1.2); BLOOD UREA NITROGEN 19 MG/DL (9-23); CALCIUM LEVEL 9.6 MG/DL (8.3-10.6); CARBON DIOXIDE LEVEL 33 MMOL/L (20-31); CHLORIDE LEVEL 103 MMOL/L (98-107); CHOLESTEROL LEVEL 113 MG/DL (<200); CHOLESTEROL RISK RATIO 3.39 (<5); CREATININE FOR GFR 0.95 MG/DL (0.70-1.30); GLOMERULAR FILTRATION RATE > 60.0 (>49); GLUCOSE, FASTING 119 MG/DL (74-106); HDL CHOLESTEROL 33.3 MG/DL (>40); LDL CHOLESTEROL 59.9 MG/DL (<100); NON-HDL-C 79.7 MG/DL; SODIUM LEVEL 141 MMOL/L (136-145); TOTAL PROTEIN 7.2 G/DL (5.7-8.2); TRIGLYCERIDES LEVEL 99 MG/DL (<150)
[2023-03-28 14:23] LABS: HEMOGLOBIN A1c 6.5 % (4.0-6.0)
[2023-03-28 16:53] LABS: CREATININE, URINE 139.7 MG/DL; MALB URINE SIEMENS < 3.0 MG/L; MAU/CREAT RATIO 2.1 MCG/MG (0.0-30.0)
== END ==
LOC: M PLALAB 09:40
PROVIDERS: ATTEND Family Medicine
DX: E11.9 Type 2 diabetes mellitus without complications (principal)

== ENCOUNTER → 2023-08-14 | Outpatient (CLI) | payer MEDICARE ==
[2023-08-14 10:39] LABS: HEMOGLOBIN A1c 7.4 % (4.0-6.0)
[2023-08-14 10:56] LABS: BLOOD UREA NITROGEN 17 MG/DL (9-23); CALCIUM LEVEL 9.2 MG/DL (8.3-10.6); CARBON DIOXIDE LEVEL 31 MMOL/L (20-31); CHLORIDE LEVEL 106 MMOL/L (98-107); CREATININE FOR GFR 0.91 MG/DL (0.70-1.30); GLOMERULAR FILTRATION RATE > 60.0 (>49); GLUCOSE, FASTING 163 MG/DL (74-106); POTASSIUM SERUM 3.9 MMOL/L (3.5-5.1); PSA SCREENING 2.05 NG/ML (< 4.00); SODIUM LEVEL 142 MMOL/L (136-145)
== END ==
LOC: M PLALAB 08:07
PROVIDERS: ATTEND Family Medicine
DX: E11.9 Type 2 diabetes mellitus without complications (principal); R97.20 Elevated prostate specific antigen [PSA]; Z12.5 Encounter for screening for malignant neoplasm of prostate
CPT/HCPCS: 36415; 80048; 83036; G0103

== ENCOUNTER → 2023-10-29 | Outpatient (CLI) | payer MEDICARE ==
[2023-10-29 14:31] LABS: BLOOD UREA NITROGEN 17 MG/DL (9-23); CALCIUM LEVEL 9.8 MG/DL (8.3-10.6); CARBON DIOXIDE LEVEL 30 MMOL/L (20-31); CHLORIDE LEVEL 104 MMOL/L (98-107); CREATININE FOR GFR 0.87 MG/DL (0.70-1.30); GLOMERULAR FILTRATION RATE > 60.0 (>49); GLUCOSE, FASTING 130 MG/DL (74-106); SODIUM LEVEL 140 MMOL/L (136-145)
[2023-10-29 15:07] LABS: HEMOGLOBIN A1c 6.7 % (4.0-6.0)
== END ==
LOC: M PLALAB 09:19
PROVIDERS: ATTEND Family Medicine
DX: E11.9 Type 2 diabetes mellitus without complications (principal)

== ENCOUNTER → 2024-05-11 | Outpatient (CLI) | payer MEDICARE ==
[~2024-05-11] MED LIST changes: -SENN-111 PO; +SENN-165 PO
[2024-05-11 10:49] LABS: PROSTATIC SPECIFIC AG MONITOR 2.58 NG/ML (< 4.00)
[2024-05-11 10:53] LABS: ALBUMIN 4.1 G/DL (3.2-5.2); ALKALINE PHOSPHATASE 84 U/L (40-129); ALT/SGPT 34 U/L (7.0-40); AST/SGOT 17 U/L (<34); BILIRUBIN,TOTAL 0.9 MG/DL (0.3-1.2); BLOOD UREA NITROGEN 16 MG/DL (9-23); CALCIUM LEVEL 9.5 MG/DL (8.3-10.6); CARBON DIOXIDE LEVEL 29 MMOL/L (20-31); CHLORIDE LEVEL 104 MMOL/L (98-107); CHOLESTEROL LEVEL 140 MG/DL (<200); CHOLESTEROL RISK RATIO 3.91 (<5); CREATININE FOR GFR 0.85 MG/DL (0.70-1.30); GLOMERULAR FILTRATION RATE > 60.0 (>49); GLUCOSE, FASTING 147 MG/DL (74-106); HDL CHOLESTEROL 35.8 MG/DL (>40); LDL CHOLESTEROL 77.8 MG/DL (<100); NON-HDL-C 104.2 MG/DL; POTASSIUM SERUM 4.2 MMOL/L (3.5-5.1); SODIUM LEVEL 141 MMOL/L (136-145); TOTAL PROTEIN 7.2 G/DL (5.7-8.2); TRIGLYCERIDES LEVEL 132 MG/DL (<150)
[2024-05-11 10:57] LABS: HEMOGLOBIN A1c 7.7 % (4.0-6.0)
[2024-05-11 11:08] LABS: CREATININE, URINE 86.4 MG/DL; MAU/CREAT RATIO 4.6 MCG/MG (0.0-30.0)
== END ==
LOC: M PLALAB 08:50
PROVIDERS: ATTEND Family Medicine
DX: I10 Essential (primary) hypertension (principal); R97.20 Elevated prostate specific antigen [PSA]

== ENCOUNTER → 2024-12-03 | Outpatient (CLI) | payer MEDICARE ==
[2024-12-03 14:03] LABS: PLATELET COUNT, AUTOMATED 233 10^3/uL (150-450)
[2024-12-03 14:05] LABS: CREATININE, URINE 90.6 MG/DL
[2024-12-03 14:06] LABS: MALB URINE SIEMENS 3.0 MG/L
[2024-12-03 14:15] LABS: ESTIMATED AVERAGE GLUCOSE 180.0 MG/DL (60-110)
[2024-12-03 14:33] LABS: ALT/SGPT 40 U/L (7.0-40); AST/SGOT 21 U/L (<34); CALCIUM LEVEL 9.4 MG/DL (8.3-10.6); CARBON DIOXIDE LEVEL 31 MMOL/L (20-31); CHLORIDE LEVEL 101 MMOL/L (98-107); CHOLESTEROL LEVEL 137 MG/DL (<200); CHOLESTEROL RISK RATIO 3.32 (<5); CREATININE FOR GFR 0.85 MG/DL (0.70-1.30); GLOMERULAR FILTRATION RATE > 90.0 (>49); LDL CHOLESTEROL 63.2 MG/DL (<100); NON-HDL-C 95.8 MG/DL; POTASSIUM SERUM 3.9 MMOL/L (3.5-5.1); PSA SCREENING 2.40 NG/ML (< 4.00); SODIUM LEVEL 140 MMOL/L (136-145); TRIGLYCERIDES LEVEL 163 MG/DL (<150)
[2024-12-03 14:34] LABS: FREE T4 1.10 NG/DL (0.89-1.76)
== END ==
LOC: M PLALAB 11:32
PROVIDERS: ATTEND Family Medicine
DX: E11.9 Type 2 diabetes mellitus without complications (principal); E78.5 Hyperlipidemia, unspecified; Z12.5 Encounter for screening for malignant neoplasm of prostate; G47.30 Sleep apnea, unspecified; L40.9 Psoriasis, unspecified
CPT/HCPCS: 36415; 80053; 80061; 82043; 83036; 84439; 84443; 85027; G0103